=== PATIENT | female | born 1965 | race Caucasian/White ===

== ENCOUNTER → 2023-04-24 15:30 | Outpatient (CLI) | payer OTHER, SELFPAY | PROVIDERS: PCP Family Medicine; Visit Provider Obstetrics & Gynecology | DX: R31.9 Hematuria, unspecified (principal) | CPT/HCPCS: 87086 ==

== ENCOUNTER 2023-08-08 08:09 | Day surgery (SDC) | payer OTHER, SELFPAY ==
[2023-08-01 11:53] VITALS: BMI 35.8
[2023-08-07 15:56] VITALS: BP 111/60; PULSE 61; RESP 16; TEMP 35.7; O2SAT 100
[2023-08-08] VITALS (14 sets, daily range): BP systolic 91–120; BP diastolic 46–70; PULSE 56–70; RESP 16–17; TEMP 35.7–37; O2SAT 94–100; BMI 31.8
[2023-08-08] MEDS: LACTATED RINGERS 1,000 ML 42 ML IV ×2 (08:57→10:57)
[2023-08-08] MEDS: SCOPOLAMINE 1 PATCH TOP (09:24)
[2023-08-08] MEDS: ACETAMINOPHEN IV 1,000 MG/100 ML VIAL 400 MG IV (09:25)
--- NOTE | 2023-08-08 09:46 | PM.PREOP ---
Pre-operative Note COVID-19 COVID-19 status: Not tested Interval Note History & Physical reviewed/Exam performed by Physician: Yes Changes to H&P: No
[2023-08-08] MEDS: CEFAZOLIN 2 GM/100 ML PREMIX 100 ML IV (10:00)
--- NOTE | 2023-08-08 10:37 | SUR.OPER ---
Lithotomy on padded OR bed. [place] Pad Positioner under torso. Head on pillow, arms padded and tucked at sides. Legs secured in padded yellow fins stirrups.
[2023-08-08] MEDS: BUPIVACAINE 0.5% (PF) 30 ML, EPINEPHrine 0.15 MG INJ (10:53)
--- NOTE | 2023-08-08 14:00 | PATH_ITS ---
[facility] Accession Number: [id number] No. of containers..01 Tissue . 01 Material submitted: . uterus - UTERUS,CERVIX,BILATERAL FALLOPIAN TUBES AND OVARIES . 01 Diagnosis: A. UTERUS, CERVIX, FALLOPIAN TUBES AND OVARIES, HYSTERECTOMY, BILATREAL SALPINGO-OOPHORECTOMY: Cervix with parakeratosis, and features suggestive of prolapse-type changes. Myometrium with a small (2 mm) benign leiomyoma. Serosa within normal limits. Scant nonproliferative benign endometrium; endometrial lining with hyalinization and fibrosis. Cross sections of bilateral fallopian tubes with focal benign partubal cyst(s). Cross sections of bilateral ovaries within normal limits. No evidence of dysplasia, endometrial neoplasia, or malignancy. [facility] 08/20/2023 1453 Local . 01 Electronically signed: . Deb Estrada MD, Pathologist NPI- [id number] . 01 Gross description: . Received in formalin with two identifiers and uterus, cervix, fallopian tubes, and ovaries, is a previously opened uterus (52 grams, 6.6 cm from superior to inferior, 5.0 cm from medial to lateral, 2.7 cm from anterior to posterior), with attached cervix (3.2 x 3.0 cm), left fimbriated fallopian tube (6.3 x 0.7 cm), left ovary (4 grams, 2.7 x 2.0 x 1.1 cm), right fallopian tube (6.3 x 0.7 cm), and right ovary (4 grams, 2.5 x 2.0 x 1.3 cm). . The ectocervix is marin and wrinkled with a slit-like os reapproximated to measure 0.4 cm in diameter. The anterior is inked blue and the posterior is inked black. The serosa is marin and wrinkled and unremarkable. The endocervical canal has marin herringbone mucosa and measures 2.1 cm in length. The endometrial cavity is disrupted measuring approximately 1.2 cm from cornu to cornu, and 2.9 cm in length with marin to brown roughened endometrium that averages less than 0.1 cm thick. The myometrium is marin and trabecular with a pale cystic cavity measuring 1.0 cm in greatest dimension, and no additional lesions or nodules identified. The myometrium measures up to 1.1 cm in maximum thickness. . The left tube has violaceous wrinkled serosa with no cysts identified and an unremarkable stellate lumen. The left ovary is marin and cerebriform with an unremarkable cut surface and no lesions identified. . The right fallopian tube has violaceous smooth serosa with multiple cystic structures measuring up to 1.3 cm in greatest dimension filled with cloudy, slightly viscous fluid. The lumen is stellate and unremarkable. The right ovary has a marin, cerebriform external surface with an unremarkable cut surface with no lesions identified. . Major Account Manager sections are submitted as follows: A1: Anterior cervix. A2: Posterior cervix. A3: Anterior full thickness section. A4: Posterior full thickness section. A5: Myometrial cystic area. A6: Left fallopian tube to include one-half of bisected fimbriae and cross-sections. A7: Left ovary. A8: Right fallopian tube to include one-half of bisected fimbriae and cross-sections. A9: Right ovary. ([id number]) . Additional sections to include possible endometrium are submitted in [id number]. ([id number]) /MARISOL 08/16/2023 1825 [facility] . 01 Pathologist provided ICD-10: N81.10, N81.6, N81.4 . 01 CPT . 995440 Specimen Comment: A courtesy copy of this report has been sent to [phone] Performed at: [address] [address], [place], [place] [id number] MD Shaggy Garcia MD Phone: [phone]
--- NOTE | 2023-08-08 14:41 | P.OP_ITS ---
Operative Date/Time/Diagnoses Date of procedure: 08/08/23 Time of procedure: 10:15 Pre-op diagnosis: (1) Uterovaginal prolapse, incomplete (2) POP-Q stage 2 rectocele (3) POP-Q stage 2 cystocele: (4) Mixed urinary incontinence due to female genital prolapse: Post-op diagnosis: other (Same as above; vaginal enterocele) Procedure & Clinicians Procedure: Procedures Operation Date: 08/08/23 09:15 Actual Procedure Side Surgeon p Laparoscopic Total Hysterectomy with bilateral salpingoophorectomy s Laparoscopic uterosacral vault suspension s Laparoscopic enterocele repair Primo Mcnamara MD s Anterior/Posterior Colporrhaphy Primo Mcnamara MD s Mid urethral sling with cystoscopy Primo Mcnamara MD Indications: Gladis is a 50-year-old 3 para 3, LMP in 2011 at the time of an endometrial ablation who presented for evaluation in referral from Dr. Scott Dorsey. The patient experienced menarche at age 16 and has had 3 deliveries, 2 of which were since and her 1st was a vaginal . She went through menopausal symptoms starting about 4 or 5 years ago and her vasomotor symptoms ceased about 2 years ago. Patient has had significant stress urinary incontinence symptoms since having her children but over the last couple of years has also started to notice increasingly significant urge incontinence. She had apparently been tried on 1st and second-line spasmolytic therapy by Urology at [facility] with little benefit yet significant side- effects. Over the last 3 or 4 years, the patient has noticed progressively severe vaginal dryness and is not using either systemic or vaginal estrogen replacement. We had an extended discussion regarding the nature of pelvic organ prolapse as well as implications for the prolapse on continence and other symptoms she has been experiencing. In addition we discussed her atrophic vaginal changes which are probably contributing to some of the bladder irritability she has been experiencing as well. After discussion of all options, the patient wishes to proceed with surgical correction of her pelvic organ prolapse as well as the KIM. Case request submitted for total laparoscopic hysterectomy with bilateral salpingo oophorectomy, uterosacral vault suspension, possible laparoscopic enterocele repair, anterior and posterior colporrhaphy, and placement of mid urethral sling with cystoscopy. In the interim, the patient has initiated vaginal estradiol therapy. She presents today for her scheduled surgery. Surgeon: Primo Mcnamara Account Services Representative: Kalee Zurita Anesthesia Type: General Operative Notes Findings: Stage II rectocele and enterocele complex. Stage II cystocele with marked urethrovesical junction hypermobility. Stage 1-2 uterovaginal prolapse. Enterocele confirmed at the time of laparoscopy. The bladder is unremarkable with vigorous streams of clear urine jetting from each ureteral orifice following completion of hysterectomy and vault suspension. The pelvis was unremarkable except for anterior cul-de-sac scarring from prior . The remainder of the abdomen and pelvis were normal as visualized laparoscopically. Closure Type: primary Specimen(s): left tube & ovary, right tube & ovary and uterus Applied: catheter and other (Vaginal packing) Estimated blood loss (mL): 150 Blood products transfused: none Procedure in detail: With the patient in modified dorsal lithotomy position preparations were made by prepping and draping the patient in usual manner for vaginal surgery and insertion of Lord catheter. A pre-surgical time-out was then taken in accordance with [facility] policy. A bivalve speculum was then placed in the vagina and the cervix visualized. The anterior lip of the cervix was then grasped with a single-tooth tenaculum. The uterus was sounded to 5 cm, the endocervical canal dilated slightly, and a VCare uterine manipulator with a large colpotomy cup was placed. The umbilicus was then infiltrated with 0.5% Marcaine with epinephrine. A 1 cm umbilical incision was made transversely and a Veress needle was used to insufflate the abdominal cavity with carbon dioxide. Once the abdomen was appropriately insufflated, a 5 mm trocar and sleeve were then placed through the umbilical incision. The scope was placed through the trocar and the initial assessment of the intra-abdominal contents carried out. A 2nd and 3rd 5 mm port was then placed 1st in the right mid quadrant from then the left mid quadrant by infiltration of the skin and subcutaneous tissues, a 1 cm transverse incision and insertion of the 5 mm bladeless port. Using a 3 puncture technique, the abdomen and pelvis were inspected laparoscopy and photographically documented. Uterus is mobilized with the VCare manipulator and attention turned to the left adnexa. The distal tube was then grasped and the infundibulopelvic ligament divided after coagulation with the PowerSeal device. The dissection was then carried out toward the cornua, then carried down using the PowerSeal device so as to divide the utero-ovarian ligament and the round ligament with blunt and sharp dissection of the broad down to the level of the uterine artery. The uterine artery was then skeletonized after development of a bladder flap, coagulated, and divided. Once hemostasis was assured on the left side attention was turned to the right and the infundibulopelvic ligament, meso salpinx, round ligament, and broad ligament were dissected in a fashion exactly the same as it had been on the left. The right uterine artery was then visualized after skeletonization and coagulated and divided. The uterus was seen to jen after coagulation of both your arteries and the cup was identified through the vaginal muscularis at its insertion with the body of the cervix. Circumferential excision of the vaginal cup was accomplished without difficulty using monopolar current and the uterus mobilized. The uterus was then removed through the vagina and the vaginal cuff closed [id number] with a series of 0 Vicryl [id number] stitches. Attention was then turned to performance of the mid urethral sling procedure. The mid urethra was identified by palpation of the Lord bulb and a 1.5 cm longitudinal incision was made in the vaginal mucosa underlying the mid-urethra after infiltration of the mucosa with 0.25% Marcaine with epinephrine. The dissection was carried out laterally on both sides with Metzenbaum scissors and the Ethicon TVT needles were introduced 1st on the right side than the left and passed through the suprapubic skin. The Lord catheter was then removed and cystoscopy performed. No abnormalities or injury to the bladder was seen and the TVT was passed up through the suprapubic incisions and appropriately tensioned. The sling was then unsheathed and correct positioning assured prior to closure of the vaginal mucosa with 2-0 Vicryl using a running interlocking stitch. Attention was then turned to performance of the anterior repair. The vaginal mucosa underlying the cystocele was infiltrated with 0.25% Marcaine with epinephrine in the midline and a longitudinal incision of the mucosa was made with a scalpel. The dissection was carried out laterally on both sides and the bladder muscularis along with the pubis cervical fascia was plicated in the midline in 2 layers. The redundant portion of vaginal mucosa was then excised with Metzenbaum scissors and the anterior vaginal incision closed with 2-0 Vicryl in a running interlocking stitch. Attention was then returned to the abdominal cavity and a 4th 5 mm port was placed in the deep right lower quadrant in preparation for laparoscopic uterosacral vault suspension and enterocele repair. Using 2-0 Ethibond suture with an EEA Sizer in the vaginal canal the uterosacral ligament on the left was attached to the vaginal cuff with 2 stitches and that process was repeated on the right side. The uterosacral ligament had been demarcated on both sides with monopolar cautery immediately lateral to the uterosacral ligament and the ureters were seen to be freely peristalsing lateral to the uterosacral ligament suspension. The enterocele was then obliterated using a laparoscopic Halban procedure with 3x 2-0 Ethibond sutures. Pelvis was carefully evaluated and no significant bleeding was noted in the pelvis. A small piece of Gel-Foam was placed over the vaginal cuff and the pne umoperitoneum was vented. The laparoscopic port sleeves were removed and the incisions closed with 4-0 Monocryl using inverted interrupted stitches. Appropriate dressings were then applied and attention returned to completion of the vaginal portion of the case. A Jennifer retractor was used to elevate the anterior vaginal wall and a nacho-shaped incision of the introitus and perineal body was performed after infiltration of those tissues with 0.25% Marcaine with epinephrine. The posterior vaginal wall was then undermined with Metzenbaum scissors and incised in the midline. Sharp and blunt dissection was used to expose the levators on both sides and a two-layer plication of the rectal muscularis, the rectovaginal fascia, and the levators was performed with 0 Vicryl interrupted stitches. The redundant portion of vaginal mucosa was then excised and the posterior vaginal incision closed with 0 Vicryl using a running interlocking stitch. Perineoplasty was then performed with 0 Vicryl deep stitches and 2-0 Vicryl subcuticular closure of the skin overlying the perineum and introitus. Hemostasis was excellent and a moistened vaginal pack was placed in the vagina. The case was then terminated, the patient awakened, and then transferred to PACU after having tolerated the procedure well. Complications: none Post-operative Condition: stable Disposition: PACU Plan for aftercare: Routine postoperative care
[2023-08-08] MEDS: OXYCODONE IR 5 MG TABLET PO (14:55)
[2023-08-08] MEDS: ONDANSETRON 4 MG/2 ML INJ IV (14:55)
[2023-08-08] MEDS: KETOROLAC 30 MG/ML VIAL IV ×2 (14:56→20:53)
[2023-08-08] MEDS: LACTATED RINGERS 1,000 ML 100 ML IV (15:41)
[2023-08-08] MEDS: ACETAMINOPHEN 325 MG TABLET 650 MG PO (18:06)
[2023-08-08] MEDS: DOCUSATE 100 MG CAPSULE 200 MG PO (20:53)
[2023-08-09] VITALS: BP 136/84; PULSE 70; RESP 17; TEMP 36.4; O2SAT 96
[2023-08-09] MEDS: KETOROLAC 30 MG/ML VIAL IV (01:41)
[2023-08-09] MEDS: ACETAMINOPHEN 325 MG TABLET 650 MG PO ×2 (01:42→05:46)
[2023-08-09] MEDS: LACTATED RINGERS 1,000 ML 100 ML IV (01:43)
[2023-08-09 06:42] LABS: Add Manual Diff / Slide Review NO; Basophils Absolute Auto 0 /uL (0-100); Basophils Percent Auto 0.1 % (0-2); Eosinophils Absolute Auto 0 /uL (0-450); Hematocrit 34.6 % (36-46); Lymphocytes Absolute Auto 2000 /uL (1100-4500); Mean Corpuscular HGB Conc 34.6 % (30-36); Mean Corpuscular Hemoglobin 30.1 PG (26-34); Mean Corpuscular Volume 86.8 fL (80-100); Monocytes Absolute Auto 700 /uL (0-900); Monocytes Percent Auto 4.2 % (3-14); Neutrophils Absolute Auto 12900 /uL (1500-7000); Neutrophils Percent Auto 82.7 % (50-75); Platelet Count 296 X10^3/uL (150-400); Red Blood Cell Count 3.98 X10^6/uL (4.0-5.2); Red Cell Distribution Width 13.3 % (11.6-14.8); White Blood Cell Count 15.6 X10^3/uL (4.5-11.0)
[2023-08-09 08:00] VITALS: BP 87/44; PULSE 52; RESP 16; TEMP 36.2; O2SAT 95
[2023-08-09] MEDS: DOCUSATE 100 MG CAPSULE 200 MG PO (09:33)
[2023-08-09] MEDS: RIVAROXABAN 10 MG TABLET 20 MG PO (09:33)
--- NOTE | 2023-08-09 10:05 | PM.DS.1 ---
History of Present Illness History of Present Illness Date Patient Seen: 08/09/23 Time Patient Seen: 10:05 Chief complaint: Pelvic organ prolapse, stress urinary incontinence Narrative: Gladis is a 50-year-old 3 para 3, LMP in 2011 at the time of an endometrial ablation who presented for evaluation in referral from Dr. Scott Dorsey. The patient experienced menarche at age 16 and has had 3 deliveries, 2 of which were since and her 1st was a vaginal . She went through menopausal symptoms starting about 4 or 5 years ago and her vasomotor symptoms ceased about 2 years ago. Patient has had significant stress urinary incontinence symptoms since having her children but over the last couple of years has also started to notice increasingly significant urge incontinence. She had apparently been tried on 1st and second-line spasmolytic therapy by Urology at [facility] with little benefit yet significant side-effects. Over the last 3 or 4 years, the patient has noticed progressively severe vaginal dryness and is not using either systemic or vaginal estrogen replacement. We had an extended discussion regarding the nature of pelvic organ prolapse as well as implications for the prolapse on continence and other symptoms she has been experiencing. In addition we discussed her atrophic vaginal changes which are probably contributing to some of the bladder irritability she has been experiencing as well. After discussion of all options, the patient wishes to proceed with surgical correction of her pelvic organ prolapse as well as the KIM. Case request submitted for total laparoscopic hysterectomy with bilateral salpingo oophorectomy, uterosacral vault suspension, possible laparoscopic enterocele repair, anterior and posterior colporrhaphy, and placement of mid urethral sling with cystoscopy. In the interim, the patient has initiated vaginal estradiol therapy. She presents today for her scheduled surgery. Discharge Providers Provider Date of admission: 08/08/2023 Discharge Date: 08/09/23 Primary care physician: Scott Dorsey DO Discharge provider: Primo Mcnamara MD Summary Hospital Course Discharge Diagnosis: Uterovaginal prolapse, incomplete Stage II cystocele Stage II enterocele/rectocele complex Stress urinary incontinence Status post total laparoscopic hysterectomy with bilateral salpingo oophorectomy, laparoscopic uterosacral ligament vault suspension, laparoscopic enterocele repair, anterior and posterior colporrhaphy, mid urethral sling placement with cystoscopy Hospital Course: The patient was admitted on the morning of 08/08/2023 and underwent an uneventful total laparoscopic hysterectomy with bilateral salpingo oophorectomy, laparoscopic uterosacral ligament vault suspension, laparoscopic enterocele repair, anterior and posterior colporrhaphy, and mid urethral sling placement with cystoscopy. Details of the procedure well summarized on my operative note of that date. Following her surgery the patient has done extremely well with prompt return of bowel and bladder function, she is ambulating independently, tolerating regular diet, and her pain is well controlled with oral pain medications. Her Xarelto will be re-initiated 1st morning after surgery and bladder scan reveals effective emptying of the bladder following removal of her catheter. She will be discharged at this time to home in an afebrile normotensive condition after counseling regarding precautionary symptoms, limitations of activity, medications, and plans for follow-up which will be in 2 weeks. Medications at discharge will include resumption of all preadmission medications as well as oxycodone 5 mg p.o. every 4 hours as needed for pain, dispense 20 with no refills. In addition she will be prescribed Cipro 500 mg p.o. b.i.d. x5 days for UTI prophylaxis following catheterization. Status at Discharge Cognitive/behavioral status at discharge: oriented Functional status at discharge: independent ambulation Overall status at discharge: patient is progressing back to baseline Time Spent with Patient Time spent: Less than 30 minutes Exam Vital Signs (past 8 hours): - 08/09/23 08:00 Temperature 97.1 F L Pulse Rate 52 L Respiratory Rate 16 Blood Pressure 87/44 L Pulse Oximetry 95 Oxygen Delivery Method Room Air Oxygen Flow Rate 0 Const General: cooperative and comfortable Nutritional Appearance: average body habitus Orientation: alert and oriented x3 HENMT Head: normal to inspection, atraumatic and abrasion Ears: hearing grossly normal bilaterally Face and sinus: face symmetric Eyes General: appearance normal, both eyes and all related structures Conjunctivae: conjunctivae normal Sclera: sclerae normal EOM: EOM intact bilaterally Neck Neck: normal visual inspection Resp Effort & Inspection: normal respiratory effort and able to speak in complete sentences Auscultation: clear to auscultation bilaterally Cardio Rate: regular rate Rhythm: regular rhythm Heart Sounds: S1 normal, S2 normal and no murmurs GI Inspection: normal to inspection and incision (Surgical dressings clean and dry) Palpation: soft, no hepatosplenomegaly and tender (Mild, diffuse postsurgical tenderness) External Female Exam: other (No significant bleeding noted) Extrem General: no calf tenderness Psych Appearance: grossly normal Mental Status: mental status grossly normal Speech and Movement: speech and movement normal Mood: congruent mood Affect: normal affect Attitude: cooperative Thought Process: normal Thought Content: normal Judgment: judgment good Objective Labs 08/09/23 05:46 Labs: Laboratory Results - last 24 hr 08/09/23 05:46 WBC 15.6 H RBC 3.98 L Hgb 12.0 Hct 34.6 L MCV 86.8 MCH 30.1 MCHC 34.6 RDW 13.3 Plt Count 296 Neut % (Auto) 82.7 H Lymph % (Auto) 13.0 L Vernon % (Auto) 4.2 Eos % (Auto) 0.0 L Baso % (Auto) 0.1 Neut # (Auto) 58557 H Lymph # (Auto) 2000 Vernon # (Auto) 700 Eos # (Auto) 0 Baso # (Auto) 0 PFSH Medical History (Updated 08/01/23 @ 14:44 by Apple Morrow RN) Factor 5 Leiden mutation, heterozygous History of CVA (cerebrovascular accident) History of cardioversion (08/30/19) History of COVID-19 (04/25/21) Sleep apnea (~2019) Abnormal Pap smear of cervix (~1988) History of urinary incontinence (~2009) Atrial fibrillation (~2019) Surgical History (Updated 08/01/23 @ 14:44 by Appel Morrow RN) History of cardiac radiofrequency ablation (03/2022) Anesthesia H/O wrist surgery (~2020) History of section History of bilateral breast reduction surgery (~1996) History of appendectomy (~1987) S/P patent foramen ovale closure (~2004) History of endometrial ablation Family History (Updated 05/10/23 @ 20:32 by Riana Kaur) Father Diabetes mellitus Mother Mental health problem Brother Diabetes mellitus Sister Fibromyalgia Grandfather Cancer Grandmother Cancer Social History household members: spouse Smoking Status: Never smoker alcohol intake: current Discharge Assessment & Plan Assessment and Plan Assessment: Uterovaginal prolapse, incomplete Stage II cystocele Stage II enterocele/rectocele complex Stress urinary incontinence Status post total laparoscopic hysterectomy with bilateral salpingo oophorectomy, laparoscopic uterosacral ligament vault suspension, laparoscopic enterocele repair, anterior and posterior colporrhaphy, mid urethral sling placement with cystoscopy Plan of Treatment: Routine postoperative care with follow-up planned for 2 weeks after her surgery or as needed Discharge Plan Discharge Plan Patient Disposition: Home Provider Discharge Comment: Please review the written instructions you received when you were discharged from the hospital. Your follow-up appointment is scheduled for 2 weeks after your surgery and I look forward to seeing you then. If however in the meanwhile you have any issues, concerns, or questions, please contact me either through the office phone at [phone], or via the patient portal. Discharge orders & Medications Discharge Orders: Discharge (Order); Ordered 08/09/23 Ordered By: Primo Mcnamara Prescriptions: New oxycodone 5 mg Tablet 5 mg PO Q4HR PRN (Reason: Pain, Moderate (4-6)) Qty: 20 0RF ciprofloxacin HCl [Cipro] 500 mg tablet 500 mg PO BID 5 Days Qty: 10 0RF Continued metoprolol succinate 25 mg tablet extended release 24 hr 12.5 mg PO DAILY estradiol 0.01 % (0.1 mg/gram) cream 1 g vaginal 3XW Qty: 42.5 12RF Rx Instructions: Apply 1 g PV hs x7 days, then PV hs 3 nights weekly aspirin 81 mg Tablet,Delayed Release (Dr/Ec) 81 mg PO BEDTIME Patient Comments: taking while off xarelto Xarelto 20 mg tablet 20 mg PO DAILY Follow up/Referrals: Scott Dorsey DO [Primary Care Provider] - Primo Mcnamara MD [Physician] - Diet/Activity/Treatments Diet: Diet as Tolerated Activity: As tolerated Other treatments: Ojku-tew-nbmcsjy Tylenol and/or ibuprofen may be used for additional pain relief. Agga-ozs-sovjcvi stool softeners and/or MiraLax may be used as needed for constipation. Skin/Wound/Dressing Care Report to your healthcare provider any signs of infection, such as:: chills, fever, increased pain, unusual drainage and unusual redness Dressing: Dressings should be removed on the morning of 08/10/2023 Visit Report/Discharge Packet Instructions: DI for Hysterectomy, DI for Laparoscopy Stand Alone Forms: Surgery Discharge Print Language: Greenlandic Discharge Data Primary Care Provider: Scott Dorsey Attending Provider: Primo Mcnamaar
--- NOTE | 2023-08-09 10:43 | CM.DANOTE ---
Initial DCP Assessment Visit Note Reviewed EMR and team rounds for status updates. Met with pt/spouse at bedside to introduce self and role, pt was found to be resting, expressing having some discomfort, however is anxious to d/c home later today after she is able to void. Pt lives independently with spouse on [facility]. Spouse will transport her home once she's cleared for discharge. Payor: DILIP Attending: Dr. Mcnamara Pt is a 58 year-old F post-op day 1 following a total laparoscopic hysterectomy with bilateral salpingo oophorectomy. She has a lengthy hx of urinary urgency, and more recently had a prolapsed uterus. No identified needs for home d/c at this time. DCP will continue to follow for any further evolving needs during her stay. Discharge Planning/Care Management CM Discharge Assessment Start: 08/09/23 10:39 Freq: Status: Active Protocol: Document 08/09/23 10:39 DPL (Rec: 08/09/23 10:43 DPL [id number]) Discharge Planning Assessment Assigned Appeals Analyst LISBETH Melendez Advance Directives? No History Provided By Patient,Significant Other Expected Length of Stay 1 Has Patient been admitted in last 30 No days? Prior Living Arrangements House Household Members spouse Type of transporation used prior to Drives own vehicle admit Independent with ADL's Yes Is patient alert and oriented? Yes Comment N/A Caregiver for Another No Comment N/A Comment N/A Comment No identified home d/c needs at this time. Barriers to Discharge No Discharge Plan Home Referrals Initiated None needed Whiteboard Updated in Patient Room with Yes name and ext. # of Appeals Analyst Review Status In Process Please Provide Date Initial DC 08/09/23 Assessment Was Performed Pre-Anesthesia Assessment Start: 08/01/23 11:53 Freq: Status: Active Protocol: Document 08/01/23 11:53 CAB (Rec: 08/01/23 12:04 CAB [id number]) Pre-Anesthesia Assessment Patient Information Reviewed Via Chart Review Primary Care Provider Scott Dorsey Seen Specialist in Last 12 Months Yes Specialist Seen Slusher Operator,Retarder Operator Primary Language Telugu Maintenance Director Required No Height 167.64 cm Weight 100.698 kg Body Mass Index (BMI) 35.8 Barriers to Learning None Anesthesia Review Requested No Housekeeping Associate No Patient is completely paralyzed or No completely immobile Mental Status Oriented to own ability Hx Sleep Apnea No Currently Taking a Beta Janice Yes: Metoprolol Anti-Coagulant Therapy Yes: Xarelto-hold 2 days prior , bridge w/ASA 81mg per Cardiology Has a Slusher Operator Yes: Visit 12/19/[address] Aravind Fisher Pacemaker/ICD No Pacemaker Rep Required? No Cardiac Clearance Received Yes Comment Cardiac records scanned and in surgery folder Bladder Pattern Incontinent, Stress Urinary Catheter Present No Hx Urinary Self Catheterization No Diabetes No Patient No Lactating No Marital Status Lives With spouse Patient Discharge Plan Description Return Home Comment Lives on [facility]
--- NOTE | 2023-08-09 15:24 | PC.NURSE ---
Pt doing well post op Denies discomfort. Orders for D/C received. Home instructions given w/ understanding Pt escorted by staff via W/C to waiting vehicle D/C in stable post op status.
== END 2023-08-09 14:53 | disposition home or self-care (01) ==
LOC: OR 08:09 → AC 08:10
PROVIDERS: PCP Family Medicine; Referring Provider Obstetrics & Gynecology; Visit Provider Obstetrics & Gynecology
PROC: 0UT94ZZ Resection of Uterus, Percutaneous Endoscopic Approach (ICD-10-PCS; principal; 2023-08-08 09:15)
PROC: 0TSD0ZZ Reposition Urethra, Open Approach (ICD-10-PCS; 2023-08-08 09:15)
DX: N81.2 Incomplete uterovaginal prolapse (principal); N39.3 Stress incontinence (female) (male); N83.8 Other noninflammatory disorders of ovary, fallopian tube and broad ligament; N88.8 Other specified noninflammatory disorders of cervix uteri
CPT/HCPCS: 57425; 58571; 51992; 57265; 36415; 57288; 85025; C1771; J0136; J0171; J0330; J0690; J1100; J1170; J1885; J2405; J2704; J3010; J3490

== ENCOUNTER → 2023-08-22 13:50 | Outpatient (CLI) | payer OTHER, SELFPAY ==
[2023-08-08 15:21] VITALS: BMI 31.8
[2023-08-22 21:25] LABS: Appearance Urine UA CLEAR; Bilirubin Urine UA NEGATIVE (NEGATIVE); Color Urine UA YELLOW; Glucose Urine UA NEGATIVE (Negative); Ketones Urine UA NEGATIVE (NEGATIVE); Leukocyte Esterase Urine UA 1+ (NEGATIVE); Nitrite Urine UA NEGATIVE (Negative); Occult Blood Urine UA TRACE-INTACT (Negative); Protein Urine UA NEGATIVE (Negative); Urobilinogen Urine UA 0.2 E.U./dL (0.2)
[2023-08-22 21:32] LABS: Bacteria Urine Occasional (0-1); Culture Indicated Urine Specimen Cultured; RBC Urine 0-1/HPF (0-5/HPF); Squamous Epithelial Cell Urine 1-5 /HPF (0-5/HPF); Urine Volume 10mL (spun); WBC Urine 1-5/HPF (0-5/HPF)
== END ==
PROVIDERS: PCP Family Medicine; Visit Provider Obstetrics & Gynecology
DX: N39.3 Stress incontinence (female) (male) (principal); R35.0 Frequency of micturition
CPT/HCPCS: 81001; 87086

== ENCOUNTER → 2023-08-30 10:36 | Outpatient (CLI) | payer OTHER, SELFPAY ==
[2023-08-08 15:21] VITALS: BMI 31.8
[2023-08-30 18:41] LABS: Appearance Urine UA CLEAR; Bilirubin Urine UA NEGATIVE (NEGATIVE); Color Urine UA YELLOW; Glucose Urine UA NEGATIVE (Negative); Ketones Urine UA NEGATIVE (NEGATIVE); Leukocyte Esterase Urine UA TRACE (NEGATIVE); Nitrite Urine UA NEGATIVE (Negative); Occult Blood Urine UA 1+ (Negative); Protein Urine UA NEGATIVE (Negative); Specific Gravity Urine UA 1.015 (1.000-1.035); Urobilinogen Urine UA 0.2 E.U./dL (0.2)
[2023-08-30 19:00] LABS: Bacteria Urine Occasional (0-1); Culture Indicated Urine Specimen Cultured; Mucus Urine 1+ (Negative); RBC Urine 1-5/HPF (0-5/HPF); Squamous Epithelial Cell Urine 1-5 /HPF (0-5/HPF); Urine Volume 10mL (spun); WBC Urine 0-1/HPF (0-5/HPF)
== END ==
PROVIDERS: PCP Family Medicine; Referring Provider Obstetrics & Gynecology; Visit Provider Obstetrics & Gynecology
DX: R30.0 Dysuria (principal)
CPT/HCPCS: 81001; 87086

== ENCOUNTER 2024-04-16 14:30 | Outpatient (RCR) | payer OTHER, SELFPAY ==
[2023-08-08 15:21] VITALS: BMI 31.8
--- NOTE | 2024-01-13 16:04 | PT.OIE ---
Current Diagnoses Urge incontinence (01/13/24) Mixed incontinence (01/13/24) Superficial (introital) dyspareunia (01/13/24) Past Medical History (Last Updated 08/01/23 @ 14:44 by Apple Morrow RN) Abnormal Pap smear of cervix (~1988) Atrial fibrillation (~2019) Factor 5 Leiden mutation, heterozygous History of cardioversion (08/30/19) History of COVID-19 (04/25/21) History of CVA (cerebrovascular accident) History of urinary incontinence (~2009) Sleep apnea (~2019) Past Surgical History (Last Updated 09/24/23 @ 13:01 by Primo Mcnamara MD) Anesthesia H/O wrist surgery (~2020) History of appendectomy (~1987) History of bilateral breast reduction surgery (~1996) History of cardiac radiofrequency ablation (03/2022) History of section History of endometrial ablation History of hysterectomy for benign disease S/P patent foramen ovale closure (~2004) Visit Care Team Role Provider Type Scott Dorsey DO Family Provider Non-Staff Primary Care Provider Specialty: Family Practice Address: [address] [place] [address], [id number] Email: Primo Mcnamara MD Attending Provider Physician Referring Provider Specialty: SOCIAL SERVICE COORDINATOR Address: [address] [place] [address], [address], [address] Email: [email or web address] Physical Therapy Initial Evaluation PT-OP-A Visit Information Start: 12/31/23 18:50 Freq: Status: Active Protocol: Document 01/13/24 08:20 LRN (Rec: 01/13/24 09:04 LRN [id number]) Out-Patient Physical Therapy Visit Information Visit Information Visit Type Initial Evaluation Visit Start Time 08:20 Visit Stop Time 09:03 Visit Number 1 Evaluation Information Evaluation Date 01/13/24 Precautions Precautions Allergies, Back pain, hyste, breast reduction (1996), PFO, 2 C-sections, bladder and rectal prolapse repair 08/15, Factor 5 Leiden mutation. Records indicate hx of CVA, cardioversion 08/30/19, A. fib 2019, S/P patent foramen ovale closure (~2004), and History of endometrial ablation. PT-OP-B Current Condition Start: 12/31/23 18:50 Freq: Status: Active Protocol: Document 01/13/24 08:20 LRN (Rec: 01/13/24 09:04 LRN [id number]) Current Condition History of Current Condition Onset Date 15 yrs ag Current Complaints Worsened urinary incontinence all the time, urinating several times/night. History of Current Condition Pt states she was told she had a prolpase a couple yrs ago. She states in July 2023 she had a hyste and surgical repair of cystocele and rectocele at same time and was given a bladder sling and was given medication for urgency by Dr. Mcnamara. Was told since she has gained a couple of pounds, that she needs to lean backwards to get full emptying of bladder. States she feels her PF strength is more (as her spouse attests) but she complains of not being able to stop urine flow when heading to the bathroom. She has had bladder infections a couple times a yr until she started taking D-manouse. She is currently taking medication for a bladder infection (still on medication ). She c/o pain with intercourse with initial insertion. Pt is G3, P3; she reports 2 c-sections, 3rd child vaginal (note: records indicated 1st was vaginal). Prior Treatments and Tests Physical Therapy in [place] before surgery, and went to bladder doctor and was given medication for it and because of secondary side effects of dementia, she stopped. Records indicate: She had apparently been tried on 1st and second-line spasmolytic therapy by Urology at [facility] with little benefit yet significant side-effects. She is 08/08/23, status post TLH with BSO, laparoscopic vault suspension, laparoscopic enterocele repair, A&P repair, and mid urethral sling placement with cystoscopy. f/u visit on 09/24/23, pt showed lack of a normal stream following her mid urethral sling placement. Treatment Goals Patient/Caregiver Goals PT goals: - prior level of function: 10x /day but able to keep from leaking while going to the bathroom. - Strengthen PF to prevent urinary leakage to be able to stop the flow of urine with an urge. - Decrease pain with intial insertion with intercourse. - HEP. Personal Factors Other Personal Factors That May Effect Surgical repair (08/08/23) of Therapy/Recovery cystocele and rectocele at same time and was given a mid urethral bladder sling, 2 C-sections, Factor 5 Leiden mutation. Records indicate hx of CVA, hx of A. fib (2019), S/P patent foramen ovale closure (~2004), and history of endometrial ablation. PT-OP-C Subjective Start: 12/31/23 18:50 Freq: Status: Active Protocol: Document 01/13/24 08:20 LRN (Rec: 01/13/24 09:04 LRN [id number]) Patient Questionnaires Pelvic Pain and Urgency/Frequency Patient Symptom Scale Pelvic Pain Score 12 PT-OP-I Pelvic Floor Start: 12/31/23 18:50 Freq: Status: Active Protocol: Document 01/13/24 08:20 LRN (Rec: 01/13/24 09:04 LRN [id number]) Pelvic Floor Assessment Urine Pelvic Floor Surgery Yes Leakage Size Medium Leakage Cause Cough,Lifting,Sneeze,Urge Leaks Per Day 10 Voiding Frequency 10 Nocturia 3-4 Pads Used In 24 Hours 5 Urine Pad Type Maxi Pad Pelvic Clock Pelvic Clock 12-3 Tightness Pelvic Clock 3-6 Tightness Pelvic Clock Other Tenderness at Pelvic Clock 1-2 and 6. Prolapse Cystocele Grade 3 Prolapse Comments Bladder visual at 1/2 of vaginal canal but has not extended to the vaginal opening in supine. Perineal Descent Resting Absent Contraction Ability Voluntary Contraction Weak Voluntary Relaxation Weak Manual Muscle Testing Left 2 Manual Muscle Testing Right 1 Manual Muscle Testing Anterior 1 Manual Muscle Testing Posterior 2 Number of Quick Contractions In 10 5 Seconds Comments Pelvic Floor Comments PF endurance not well palpable ; therefore the length of hold is questionable, possibly holding up to 5 secs with use of gluteal and abdominal muscles to assist with contraction. PF quick contractions are sluggish. R labia minora is tender at lower right region. Redness is present in bilateral labia minora. PT-OP-J Posture/Palpation/Skin Start: 12/31/23 18:50 Freq: Status: Active Protocol: Document 01/13/24 08:20 LRN (Rec: 01/13/24 09:04 LRN [id number]) Posture Evaluation Position Standing Head/C-Spine Posture Forward Head L-Spine Posture Shifted Left Pelvis Posture Anteriorly Tilted Weight Distribution Weight Shifted Left Hip Posture (R) Externally Rotated,(R) Abducted Comments Posture Comments L ear is low, Dowagers hump, straightened upper thoracic spine. PT-OP-K Range of Motion Start: 12/31/23 18:50 Freq: Status: Active Protocol: Document 01/13/24 08:20 LRN (Rec: 01/13/24 09:04 LRN [id number]) Lumbar Spine Range of Motion Lumbar Spine Active Degrees Testing Position Standing Flexion 70 Extension 10 Rotation Left 30 Rotation Right 35 Lateral Flexion Left 20 Lateral Flexion Right 15 Hip Goniometric Range of Motion Hip Right Passive Testing Position Supine Internal Rotation 35 External Rotation 65 Left Passive Testing Position Supine Internal Rotation 30 External Rotation 60 PT-OP-M Strength Start: 12/31/23 18:50 Freq: Status: Active Protocol: Document 01/13/24 08:20 LRN (Rec: 01/13/24 09:04 LRN [id number]) Hip Strength Hip Manual Muscle Testing Right External Rotation 4+ Good+ Comments Strength is 5/5 except as indicated above. Left Comments Strength is 5/5 except as indicated above. PT-OP-Q Treatments Start: 12/31/23 18:50 Freq: Status: Active Protocol: Document 01/13/24 08:20 LRN (Rec: 01/13/24 11:25 LRN [id number]) Self-Care/Home Management Treatment Education Other Education Discussed results of evaluation, goals, treatment, and plan of care (POC) with pt , discussed attendance/cx/dns policy; pt agreeable to evaluation, goals, treatment, attendance/cx/dns policy and POC. Discussed and educated pt in specifics for completion of in use of Bladder Diary and I/S in tracking for 1 week. Activities Self-Care/Home Management Activities Issued & reviewed HEP: Basiliogel ex's and discussed exercise of Quick Flicks, Long Holds and Aggravators. PT-OP-T Assessment and Plan Start: 12/31/23 18:50 Freq: Status: Active Protocol: Document 01/13/24 08:20 LRN (Rec: 01/13/24 09:04 LRN [id number]) Physical Therapy Assessment Rehab Potential Rehabilitation Potential Good Evaluation Complexity Number of Personal Factors/Comorbidities 3 or More Number of Body Systems Impaired 4 or More Clinical Presentation at Evaluation Evolving Impairments Impairments Activity Tolerance, Coordination,Pain,Posture,ROM, Soft Tissue Mobility,Strength, Transfers Other Impairments Mixed urinary leakage, dysparenia poor coordination of PF contraction with breath/ transfers. Goals Four Impairment Pain with intercourse on insertion Short Term Goal (STG) Pt will be educated in genital /vulvar care, and will seek medication to improve tissue health of her labia minora. STG Duration 02/28/24 [place] Goal (LTG) Eliminate pain with intercourse on initial insertion. LTG Duration 04/10/24 Three Impairment Urge urinary incontinence while heading to bathroom Short Term Goal (STG) Pt will be educated urge deference technique, bowel care, and BM massage to be able to prevent urinary leakage with a strong urge while at home. STG Duration 02/28/24 [place] Goal (LTG) Strengthen PF to prevent urinary leakage with a strong urge when in public. LTG Duration 04/10/24 Two Impairment Increased frequency of urination (10x/day) Short Term Goal (STG) Pt will be educated in norms for voiding (fluid intake, frequency and urination time) and in bladder retraining to reduce times urinating during the day to no more than 6-7x/ day and 1x at night. STG Duration 02/28/24 [facility] Goal (LTG) Return pt to at least her prior level of function: voiding 10x/day without urinary leakage. LTG Duration 04/10/24 One Impairment Pt lacks an independent self care HEP. Short Term Goal (STG) Pt will be educated and able to demonstrate transfers to coordinate breath/PF contraction with transfer to lessen core abdominal pressure . STG Duration 02/28/24 [place] Goal (LTG) Pt will be independent in a self care HEP for PF strengthening. LTG Duration 04/10/24 Assessment Summary Assessment Pt is a 58 yo female who presents with mixed urinary incontinence and drop of her bladder into her vaginal canal , but not extending past her vaginal canal (grade 3), when in supine at rest. She is able to get a lift of her bladder with a pelvic floor contraction. She has tightness of PF on the L lateral wall (PF cloc, 1-2 & 6 O'Clock), very weak contractions, and sluggish quick contractions. Her left lower outer labia is tender, and is probably the source of her pain with intercourse, as well as redness of her labia minora bilaterally; therefore recommend external estrogen creme to improve tissue health as well as pt eduction in vulvar/genital care. She is quite limited in her trunk mobility and is mildly decreased in her hip mobility. The pt moves with poor core pressure mgmt and her body mechanics with transfers create more core pressure management. She is not having daily bowel movements, which also contribute to her poor core pressure management. The pt will benefit from skilled physical therapy for interventions identified below , in order to work towards achieving the above stated goals. Physical Therapy Plan Frequency and Duration Frequency of Treatment 1x/Week Duration of treatment (weeks) 12 Plan of Care Start Date 01/13/24 Plan of Care End Date 04/10/24 Therapeutic Interventions Therapeutic Interventions Home Exercise Program,Manual Therapy,Neuromuscular Re- education,Self-Care/Home Management,Soft Tissue Mobilization,Therapeutic Activities,Therapeutic Exercises Modalities Biofeedback Other Referrals/Consults Referrals/Consults Recommended Recommend if appropriate topical vaginal cream to improve tissue health of labia minora. Next Visit Focus/Plan Next Note Type Treatment Note Next Visit Plan Next: Review Bladder dairy and discussed fluid intake (AM /PM), bowel movement frequency , & nighttime voiding frequency. Pt education and training in proper Kegel without use of substitute muscles. Pt education proper vulvar and perineal care with handout. Discuss vaginal entry and possible reasons for pain and make recommendation to address with referring physician. Discuss & educate pt in proper transfers, moving in bed, and squatting and lifting using breathwork and PF contraction for coordination of mvmt with breath & Kegel. Manual: improve abdominal soft tissue (bladder) mobility . Pt education and discussion in Urinary urge technique with handout. Pt education and discussion of frequency of BM's, bowel massage, bowel care, and how to have bowel movements without holding breath and discuss squatty potty. EX: PF/hip mobility & strengthening, improve core/ pelvic stability after pt is able to manage her core pressure. General POC: Pt education, self care management, manual therapy (abdominal STM and scar mob), biofeedback with vaginal sensor, therapeutic exercises, therapeutic activities, and neuromuscular reeducation.
--- NOTE | 2024-01-20 14:32 | PT.OTN ---
Current Diagnoses Urge incontinence (01/20/24) Mixed incontinence (01/20/24) Superficial (introital) dyspareunia (01/20/24) Physical Therapy Treatment Note PT-OP-A Visit Information Start: 12/31/23 18:50 Freq: Status: Active Protocol: Document 01/20/24 13:05 LRN (Rec: 01/20/24 14:29 LRN [id number]) Out-Patient Physical Therapy Visit Information Visit Information Visit Type Treatment Note Visit Start Time 13:05 Visit Stop Time 13:52 Visit Number 2 Evaluation Information Evaluation Date 01/13/24 Precautions Precautions Allergies, Back pain, hyste, breast reduction (1996), PFO, 2 C-sections, bladder and rectal prolapse repair 08/15, Factor 5 Leiden mutation. Records indicate hx of CVA, cardioversion 08/30/19, A. fib 2019, S/P patent foramen ovale closure (~2004), and History of endometrial ablation. PT-OP-B Current Condition Start: 12/31/23 18:50 Freq: Status: Active Protocol: Document 01/13/24 08:20 LRN (Rec: 01/13/24 09:04 LRN [id number]) Current Condition History of Current Condition Onset Date 15 yrs ag Current Complaints Worsened urinary incontinence all the time, urinating several times/night. History of Current Condition Pt states she was told she had a prolpase a couple yrs ago. She states in July 2023 she had a hyste and surgical repair of cystocele and rectocele at same time and was given a bladder sling and was given medication for urgency by Dr. Mcnamara. Was told since she has gained a couple of pounds, that she needs to lean backwards to get full emptying of bladder. States she feels her PF strength is more (as her spouse attests) but she complains of not being able to stop urine flow when heading to the bathroom. She has had bladder infections a couple times a yr until she started taking D-manouse. She is currently taking medication for a bladder infection (still on medication ). She c/o pain with intercourse with initial insertion. Pt is G3, P3; she reports 2 c-sections, 3rd child vaginal (note: records indicated 1st was vaginal). Prior Treatments and Tests Physical Therapy in [place] before surgery, and went to bladder doctor and was given medication for it and because of secondary side effects of dementia, she stopped. Records indicate: She had apparently been tried on 1st and second-line spasmolytic therapy by Urology at [facility] with little benefit yet significant side-effects. She is 08/08/23, status post TLH with BSO, laparoscopic vault suspension, laparoscopic enterocele repair, A&P repair, and mid urethral sling placement with cystoscopy. MD f/u visit on 09/24/23, pt showed lack of a normal stream following her mid urethral sling placement. Treatment Goals Patient/Caregiver Goals PT goals: - prior level of function: 10x /day but able to keep from leaking while going to the bathroom. - Strengthen PF to prevent urinary leakage to be able to stop the flow of urine with an urge. - Decrease pain with intial insertion with intercourse. - HEP. Personal Factors Other Personal Factors That May Effect Surgical repair (08/08/23) of Therapy/Recovery cystocele and rectocele at same time and was given a mid urethral bladder sling, 2 C-sections, Factor 5 Leiden mutation. Records indicate hx of CVA, hx of A. fib (2019), S/P patent foramen ovale closure (~2004), and history of endometrial ablation. PT-OP-C Subjective Start: 12/31/23 18:50 Freq: Status: Active Protocol: Document 01/20/24 13:05 LRN (Rec: 01/20/24 14:29 LRN [id number]) OP-PT Subjective Patient Comments Patient Comments Was on trip and did pre- emptive urinating to not be caught unaware. Urination times is dribbling out as she shifts around. States she is having daily BMs. PT-OP-I Pelvic Floor Start: 12/31/23 18:50 Freq: Status: Active Protocol: Document 01/13/24 08:20 LRN (Rec: 01/13/24 09:04 LRN [id number]) Pelvic Floor Assessment Urine Pelvic Floor Surgery Yes Leakage Size Medium Leakage Cause Cough,Lifting,Sneeze,Urge Leaks Per Day 10 Voiding Frequency 10 Nocturia 3-4 Pads Used In 24 Hours 5 Urine Pad Type Maxi Pad Pelvic Clock Pelvic Clock 12-3 Tightness Pelvic Clock 3-6 Tightness Pelvic Clock Other Tenderness at Pelvic Clock 1-2 and 6. Prolapse Cystocele Grade 3 Prolapse Comments Bladder visual at 1/2 of vaginal canal but has not extended to the vaginal opening in supine. Perineal Descent Resting Absent Contraction Ability Voluntary Contraction Weak Voluntary Relaxation Weak Manual Muscle Testing Left 2 Manual Muscle Testing Right 1 Manual Muscle Testing Anterior 1 Manual Muscle Testing Posterior 2 Number of Quick Contractions In 10 5 Seconds Comments Pelvic Floor Comments PF endurance not well palpable ; therefore the length of hold is questionable, possibly holding up to 5 secs with use of gluteal and abdominal muscles to assist with contraction. PF quick contractions are sluggish. R labia minora is tender at lower right region. Redness is present in bilateral labia minora. PT-OP-J Posture/Palpation/Skin Start: 12/31/23 18:50 Freq: Status: Active Protocol: Document 01/13/24 08:20 LRN (Rec: 01/13/24 09:04 LRN [id number]) Posture Evaluation Position Standing Head/C-Spine Posture Forward Head L-Spine Posture Shifted Left Pelvis Posture Anteriorly Tilted Weight Distribution Weight Shifted Left Hip Posture (R) Externally Rotated,(R) Abducted Comments Posture Comments L ear is low, Dowagers hump, straightened upper thoracic spine. PT-OP-K Range of Motion Start: 12/31/23 18:50 Freq: Status: Active Protocol: Document 01/13/24 08:20 LRN (Rec: 01/13/24 09:04 LRN [id number]) Lumbar Spine Range of Motion Lumbar Spine Active Degrees Testing Position Standing Flexion 70 Extension 10 Rotation Left 30 Rotation Right 35 Lateral Flexion Left 20 Lateral Flexion Right 15 Hip Goniometric Range of Motion Hip Right Passive Testing Position Supine Internal Rotation 35 External Rotation 65 Left Passive Testing Position Supine Internal Rotation 30 External Rotation 60 PT-OP-M Strength Start: 12/31/23 18:50 Freq: Status: Active Protocol: Document 01/13/24 08:20 LRN (Rec: 01/13/24 09:04 LRN [id number]) Hip Strength Hip Manual Muscle Testing Right External Rotation 4+ Good+ Comments Strength is 5/5 except as indicated above. Left Comments Strength is 5/5 except as indicated above. PT-OP-Q Treatments Start: 12/31/23 18:50 Freq: Status: Active Protocol: Document 01/20/24 13:05 LRN (Rec: 01/20/24 14:29 LRN [id number]) Therapeutic Exercises Supine Exercises Kegel Supine Exercise Name Gerri, then Hips on Pillow when contraction couldn't be felt Equipment Used Pillow Reps/Minutes 10' Comments Cued for PF lift. Noted abdominal doming with Kegel Deep Breathing Reps/Minutes 10' Comments Cued to exhale a little quicker as she breaths 9 sec in/10+ out. Sitting Exercises Deep Breathing Reps/Minutes 3' Manual Therapy Treatment Consent Patient gave verbal consent for manual Yes treatment Soft Tissue Mobilization Abdomen Body Location Bladder Mobilization Type Sustained Pressure Body Position Hooklying Self-Care/Home Management Treatment Education Other Education -Reviewed Bladder dairy and discussed fluid intake (AM/PM) pointing out more water creates greater times between voids, Norms for: urination times, times btn voids, bowel movement frequency, & nighttime voiding frequency. -Education in bladder irritants. -Education in urge deference technique. Activities Self-Care/Home Management Activities Issued and reviewed handouts for bladder irritants, urge deference technique. PT-OP-T Assessment and Plan Start: 12/31/23 18:50 Freq: Status: Active Protocol: Document 01/20/24 13:05 LRN (Rec: 01/20/24 14:29 [facility] [id number]) Physical Therapy Assessment Goals Four Impairment Pain with intercourse on insertion Short Term Goal (STG) Pt will be educated in genital /vulvar care, and will seek medication to improve tissue health of her labia minora. STG Duration 02/28/24 Online [employer] Strateg[employer] Goal (LTG) Eliminate pain with intercourse on initial insertion. LTG Duration 04/10/24 Three Impairment Urge urinary incontinence while heading to bathroom Short Term Goal (STG) Pt will be educated urge deference technique, bowel care, and BM massage to be able to prevent urinary leakage with a strong urge while at home. 01/20/24: Pt educated in urge deference techniqe. Pt reported having daily BMs last week while traveling. STG Duration 02/28/24 progressed 01/20/24 (need BM massage & bowel care) [facility] Goal (LTG) Strengthen PF to prevent urinary leakage with a strong urge when in public. LTG Duration 04/10/24 Two Impairment Increased frequency of urination (10x/day) Short Term Goal (STG) Pt will be educated in norms for voiding (fluid intake, frequency and urination time) and in bladder retraining to reduce times urinating during the day to no more than 6-7x/ day and 1x at night. 01/20/24: Pt educated in norms for fluid intake, norms for urinary frequency and urination times, times between voids and in bladder retraining (urge deference technique). Pt voiding mostly 7x/day, once 9x. Voiding time is 15 secs. STG Duration 02/28/24 progressed 01/20/24 (need voiding time 13 secs or less) [facility] Goal (LTG) Return pt to at least her prior level of function: voiding 10x/day without urinary leakage. 01/20/24: Pt voiding mostly 7x/day, once 9x. Voiding time is 15 secs LTG Duration 04/10/24 progressed 01/20/24 (need voiding time 7-10 secs) One Impairment Pt lacks an independent self care HEP. Short Term Goal (STG) Pt will be educated and able to demonstrate transfers to coordinate breath/PF contraction with transfer to lessen core abdominal pressure . 01/20/24: Pt educated in breathwork with transfers stand<>sit<>supine. STG Duration 02/28/24 initiated training 01/20/24 [facility] Goal (LTG) Pt will be independent in a self care HEP for PF strengthening. Late entry: 01/13/24: Kegels : Quick, Long hold, Aggrevators. LTG Duration 04/10/24 progressed on Assessment Summary Assessment 58 yo female w/ mixed urinary incontinence, drop of bladder into vaginal canal but not past her vaginal opening ( grade 3) in supine; tight L lateral wall, sluggish quick and weak Kegels. L lower outer labia is tender ( probably source of intercourse pain) and redness at labia minora bilaterally. Today, pt shows good slow breathing but not deeply; further monitoring needed. She appears to have poor coordination of PF contractions with bulging at perineum vs drawing up and in. She demonstrated good knowledge of coordinated breathwork with transfers with minimal to no cuing after training. Physical Therapy Plan Frequency and Duration Frequency of Treatment 1x/Week Duration of treatment (weeks) 12 Plan of Care Start Date 01/13/24 Plan of Care End Date 04/10/24 Next Visit Focus/Plan Next Note Type Treatment Note Next Visit Plan Possible use of biofeedback if external electrodes available . Assess if Vemg electrode is appropriate with respect to surgeries and AFib (anchors for bladder & bowel lift and A .Fib history). Next: Assess response to pt education in urge deference technique & review proper transfers w/breathwork and add Kegel if pt coordinated with breath. Pt education (for when having type 1-2 BM) and discuss norm of frequency of BM's, bowel massage, bowel care, and how to have bowel movements without holding breath and discuss squatty potty. PF training of properly coordinated Kegel with internal manual feedback & without use of substitute muscles. Assess PF lift with STM of bladder lift. Pt education proper vulvar and perineal care with handout. Discuss vaginal entry and possible reasons for pain and make recommendation to address with referring physician. Discuss & educate pt in squatting and lifting using breathwork and PF contraction for coordination of mvmt with breath & Kegel. Manual: improve abdominal soft tissue (bladder) mobility . EX: PF (on wedge)/hip mobility & strengthening, improve core/pelvic stability after pt is able to manage her core pressure. General POC: Pt education, self care management, manual therapy (abdominal STM and scar mob), biofeedback with vaginal sensor, therapeutic exercises, therapeutic activities, and neuromuscular reeducation.
--- NOTE | 2024-02-06 14:06 | PT.OTN ---
Current Diagnoses Urge incontinence (02/06/24) Mixed incontinence (02/06/24) Superficial (introital) dyspareunia (02/06/24) Physical Therapy Treatment Note PT-OP-A Visit Information Start: 12/31/23 18:50 Freq: Status: Active Protocol: Document 02/06/24 13:02 LRN (Rec: 02/06/24 13:50 LRN [id number]) Out-Patient Physical Therapy Visit Information Visit Information Visit Type Treatment Note Visit Start Time 13:02 Visit Stop Time 13:45 Visit Number 3 Evaluation Information Evaluation Date 01/13/24 Precautions Precautions Allergies, Back pain, hyste, breast reduction (1996), PFO, 2 C-sections, bladder and rectal prolapse repair 08/15, Factor 5 Leiden mutation. Records indicate hx of CVA, cardioversion 08/30/19, A. fib 2019, S/P patent foramen ovale closure (~2004), and History of endometrial ablation. PT-OP-B Current Condition Start: 12/31/23 18:50 Freq: Status: Active Protocol: Document 01/13/24 08:20 LRN (Rec: 01/13/24 09:04 LRN [id number]) Current Condition History of Current Condition Onset Date 15 yrs ag Current Complaints Worsened urinary incontinence all the time, urinating several times/night. History of Current Condition Pt states she was told she had a prolpase a couple yrs ago. She states in July 2023 she had a hyste and surgical repair of cystocele and rectocele at same time and was given a bladder sling and was given medication for urgency by Dr. Mcnamara. Was told since she has gained a couple of pounds, that she needs to lean backwards to get full emptying of bladder. States she feels her PF strength is more (as her spouse attests) but she complains of not being able to stop urine flow when heading to the bathroom. She has had bladder infections a couple times a yr until she started taking D-manouse. She is currently taking medication for a bladder infection (still on medication ). She c/o pain with intercourse with initial insertion. Pt is G3, P3; she reports 2 c-sections, 3rd child vaginal (note: records indicated 1st was vaginal). Prior Treatments and Tests Physical Therapy in [place] before surgery, and went to bladder doctor and was given medication for it and because of secondary side effects of dementia, she stopped. Records indicate: She had apparently been tried on 1st and second-line spasmolytic therapy by Urology at [facility] with little benefit yet significant side-effects. She is 08/08/23, status post TLH with BSO, laparoscopic vault suspension, laparoscopic enterocele repair, A&P repair, and mid urethral sling placement with cystoscopy. MD f/u visit on 09/24/23, pt showed lack of a normal stream following her mid urethral sling placement. Treatment Goals Patient/Caregiver Goals PT goals: - prior level of function: 10x /day but able to keep from leaking while going to the bathroom. - Strengthen PF to prevent urinary leakage to be able to stop the flow of urine with an urge. - Decrease pain with intial insertion with intercourse. - HEP. Personal Factors Other Personal Factors That May Effect Surgical repair (08/08/23) of Therapy/Recovery cystocele and rectocele at same time and was given a mid urethral bladder sling, 2 C-sections, Factor 5 Leiden mutation. Records indicate hx of CVA, hx of A. fib (2019), S/P patent foramen ovale closure (~2004), and history of endometrial ablation. PT-OP-C Subjective Start: 12/31/23 18:50 Freq: Status: Active Protocol: Document 02/06/24 13:02 LRN (Rec: 02/06/24 13:50 LRN [id number]) OP-PT Subjective Patient Comments Patient Comments Has been working on breathing. Still daily BMs. Thinks things are worse, urgency is worse and leaking walking to toilet, because [id number] passed. Patient Reported Progress Same PT-OP-I Pelvic Floor Start: 12/31/23 18:50 Freq: Status: Active Protocol: Document 01/13/24 08:20 LRN (Rec: 01/13/24 09:04 LRN [id number]) Pelvic Floor Assessment Urine Pelvic Floor Surgery Yes Leakage Size Medium Leakage Cause Cough,Lifting,Sneeze,Urge Leaks Per Day 10 Voiding Frequency 10 Nocturia 3-4 Pads Used In 24 Hours 5 Urine Pad Type Maxi Pad Pelvic Clock Pelvic Clock 12-3 Tightness Pelvic Clock 3-6 Tightness Pelvic Clock Other Tenderness at Pelvic Clock 1-2 and 6. Prolapse Cystocele Grade 3 Prolapse Comments Bladder visual at 1/2 of vaginal canal but has not extended to the vaginal opening in supine. Perineal Descent Resting Absent Contraction Ability Voluntary Contraction Weak Voluntary Relaxation Weak Manual Muscle Testing Left 2 Manual Muscle Testing Right 1 Manual Muscle Testing Anterior 1 Manual Muscle Testing Posterior 2 Number of Quick Contractions In 10 5 Seconds Comments Pelvic Floor Comments PF endurance not well palpable ; therefore the length of hold is questionable, possibly holding up to 5 secs with use of gluteal and abdominal muscles to assist with contraction. PF quick contractions are sluggish. R labia minora is tender at lower right region. Redness is present in bilateral labia minora. PT-OP-J Posture/Palpation/Skin Start: 12/31/23 18:50 Freq: Status: Active Protocol: Document 01/13/24 08:20 LRN (Rec: 01/13/24 09:04 LRN [id number]) Posture Evaluation Position Standing Head/C-Spine Posture Forward Head L-Spine Posture Shifted Left Pelvis Posture Anteriorly Tilted Weight Distribution Weight Shifted Left Hip Posture (R) Externally Rotated,(R) Abducted Comments Posture Comments L ear is low, Dowagers hump, straightened upper thoracic spine. PT-OP-K Range of Motion Start: 12/31/23 18:50 Freq: Status: Active Protocol: Document 01/13/24 08:20 LRN (Rec: 01/13/24 09:04 LRN [id number]) Lumbar Spine Range of Motion Lumbar Spine Active Degrees Testing Position Standing Flexion 70 Extension 10 Rotation Left 30 Rotation Right 35 Lateral Flexion Left 20 Lateral Flexion Right 15 Hip Goniometric Range of Motion Hip Right Passive Testing Position Supine Internal Rotation 35 External Rotation 65 Left Passive Testing Position Supine Internal Rotation 30 External Rotation 60 PT-OP-M Strength Start: 12/31/23 18:50 Freq: Status: Active Protocol: Document 01/13/24 08:20 LRN (Rec: 01/13/24 09:04 LRN [id number]) Hip Strength Hip Manual Muscle Testing Right External Rotation 4+ Good+ Comments Strength is 5/5 except as indicated above. Left Comments Strength is 5/5 except as indicated above. PT-OP-Q Treatments Start: 12/31/23 18:50 Freq: Status: Active Protocol: Document 02/06/24 13:02 LRN (Rec: 02/06/24 13:50 LRN [id number]) Therapeutic Exercises Supine Exercises Kegel Supine Exercise Name Quick Kegels: Quick and Long Hold with & w/o internal manual cuing Equipment Used Wedge Comments Cued to get double time rest after contract Deep Breathing Reps/Minutes 5' Comments Cued to exhale a little quicker as she breaths 9 sec in/10+ out. Manual Therapy Treatment Consent Patient gave verbal consent for manual Yes treatment Soft Tissue Mobilization PF Body Location Superficial & Deep PF ms Mobilization Type Sustained Pressure,Trigger Point Release Body Position Hooklying Comments PF clock 2, 3,5.6, 9 with extra time taken for TrP to reduce PF ms tone. Self-Care/Home Management Treatment Activities Self-Care/Home Management Activities Issued & reviewed handouts for bed mobility and transfers. Issued handouts for Genital Hygiene and Vulvar Care. PT-OP-T Assessment and Plan Start: 12/31/23 18:50 Freq: Status: Active Protocol: Document 02/06/24 13:02 LRN (Rec: 02/06/24 13:50 N [id number]) Physical Therapy Assessment Goals Four Impairment Pain with intercourse on insertion Short Term Goal (STG) Pt will be educated in genital /vulvar care, and will seek medication to improve tissue health of her labia minora. 02/06/24: Pt issued handout for genital/vulvar care. STG Duration 02/28/24 (02/06/24: need to discuss seeing of meds) [facility] Goal (LTG) Eliminate pain with intercourse on initial insertion. LTG Duration 04/10/24 Three Impairment Urge urinary incontinence while heading to bathroom Short Term Goal (STG) Pt will be educated urge deference technique, bowel care, and BM massage to be able to prevent urinary leakage with a strong urge while at home. 01/20/24: Pt educated in urge deference techniqe. Pt reported having daily BMs last week while traveling. STG Duration 02/28/24 progressed 01/20/24 (need BM massage & bowel care) [employer] Goal (LTG) Strengthen PF to prevent urinary leakage with a strong urge when in public. LTG Duration 04/10/24 Two Impairment Increased frequency of urination (10x/day) Short Term Goal (STG) Pt will be educated in norms for voiding (fluid intake, frequency and urination time) and in bladder retraining to reduce times urinating during the day to no more than 6-7x/ day and 1x at night. 01/20/24: Pt educated in norms for fluid intake, norms for urinary frequency and urination times, times between voids and in bladder retraining (urge deference technique). Pt voiding mostly 7x/day, once 9x. Voiding time is 15 secs. STG Duration 02/28/24 progressed 01/20/24 (need voiding time 13 secs or less) Balance Wheel Facer Goal (LTG) Return pt to at least her prior level of function: voiding 10x/day without urinary leakage. 01/20/24: Pt voiding mostly 7x/day, once 9x. Voiding time is 15 secs LTG Duration 04/10/24 progressed 01/20/24 (need voiding time 7-10 secs) One Impairment Pt lacks an independent self care HEP. Short Term Goal (STG) Pt will be educated and able to demonstrate transfers to coordinate breath/PF contraction with transfer to lessen core abdominal pressure . 01/20/24: Pt educated in breathwork with transfers stand<>sit<>supine. 02/06/24: Educated pt in breathwork w/transfers Sup<> sit<>stand and was able to perform with cuing.. STG Duration 02/28/24 Progressed: 01/20/24 [facility] Goal (LTG) Pt will be independent in a self care HEP for PF strengthening. Late entry: 01/13/24: Kegels : Quick, Long hold, Aggrevators. LTG Duration 04/10/24 progressed on Assessment Summary Assessment 58 yo female w/ mixed urinary incontinence, grade 3 cystocele in supine; tight L lateral wall, sluggish quick and weak Kegels. L lower outer labia tenderness and redness at labia minora bilaterally. Sweaker on L lateral wall then excore. Tightness and PF weakness persist. Physical Therapy Plan Frequency and Duration Frequency of Treatment 1x/Week Duration of treatment (weeks) 12 Plan of Care Start Date 01/13/24 Plan of Care End Date 04/10/24 Next Visit Focus/Plan Next Note Type Treatment Note Next Visit Plan Possible use of biofeedback if external electrodes available . Assess if Vemg electrode is appropriate with respect to surgeries and AFib (anchors for bladder & bowel lift and A .Fib history). Next: Assess response to pt education in urge deference technique & review proper transfers w/breathwork and add Kegel if pt coordinated with breath. Pt education (for when having type 1-2 BM) and discuss norm of frequency of BM's, bowel massage, bowel care, and how to have bowel movements without holding breath and discuss squatty potty. PF training of properly coordinated Kegel with internal manual feedback & without use of substitute muscles. Assess PF lift with STM of bladder lift. Pt education proper vulvar and perineal care with handout. Discuss vaginal entry and possible reasons for pain and make recommendation to address with referring physician. Discuss & educate pt in squatting and lifting using breathwork and PF contraction for coordination of mvmt with breath & Kegel. Manual: improve abdominal soft tissue (bladder) mobility . EX: PF (on wedge)/hip mobility & strengthening, improve core/pelvic stability after pt is able to manage her core pressure. General POC: Pt education, self care management, manual therapy (abdominal STM and scar mob), biofeedback with vaginal sensor, therapeutic exercises, therapeutic activities, and neuromuscular reeducation.
--- NOTE | 2024-02-13 15:57 | PT.OTN ---
Current Diagnoses Urge incontinence (02/13/24) Mixed incontinence (02/13/24) Superficial (introital) dyspareunia (02/13/24) Physical Therapy Treatment Note PT-OP-A Visit Information Start: 12/31/23 18:50 Freq: Status: Active Protocol: Document 02/13/24 13:02 LRN (Rec: 02/13/24 13:47 LRN [id number]) Out-Patient Physical Therapy Visit Information Visit Information Visit Type Treatment Note Visit Start Time 13:02 Visit Stop Time 13:44 Visit Number 4 Evaluation Information Evaluation Date 01/13/24 Precautions Precautions Allergies, Back pain, hyste, breast reduction (1996), PFO, 2 C-sections, bladder and rectal prolapse repair 08/15, Factor 5 Leiden mutation. Records indicate hx of CVA, cardioversion 08/30/19, A. fib 2019, S/P patent foramen ovale closure (~2004), and History of endometrial ablation. PT-OP-B Current Condition Start: 12/31/23 18:50 Freq: Status: Active Protocol: Document 01/13/24 08:20 LRN (Rec: 01/13/24 09:04 LRN [id number]) Current Condition History of Current Condition Onset Date 15 yrs ag Current Complaints Worsened urinary incontinence all the time, urinating several times/night. History of Current Condition Pt states she was told she had a prolpase a couple yrs ago. She states in July 2023 she had a hyste and surgical repair of cystocele and rectocele at same time and was given a bladder sling and was given medication for urgency by Dr. Mcnamara. Was told since she has gained a couple of pounds, that she needs to lean backwards to get full emptying of bladder. States she feels her PF strength is more (as her spouse attests) but she complains of not being able to stop urine flow when heading to the bathroom. She has had bladder infections a couple times a yr until she started taking D-manouse. She is currently taking medication for a bladder infection (still on medication ). She c/o pain with intercourse with initial insertion. Pt is G3, P3; she reports 2 c-sections, 3rd child vaginal (note: records indicated 1st was vaginal). Prior Treatments and Tests Physical Therapy in [place] before surgery, and went to bladder doctor and was given medication for it and because of secondary side effects of dementia, she stopped. Records indicate: She had apparently been tried on 1st and second-line spasmolytic therapy by Urology at [facility] with little benefit yet significant side-effects. She is 08/08/23, status post TLH with BSO, laparoscopic vault suspension, laparoscopic enterocele repair, A&P repair, and mid urethral sling placement with cystoscopy. MD f/u visit on 09/24/23, pt showed lack of a normal stream following her mid urethral sling placement. Treatment Goals Patient/Caregiver Goals PT goals: - prior level of function: 10x /day but able to keep from leaking while going to the bathroom. - Strengthen PF to prevent urinary leakage to be able to stop the flow of urine with an urge. - Decrease pain with intial insertion with intercourse. - HEP. Personal Factors Other Personal Factors That May Effect Surgical repair (08/08/23) of Therapy/Recovery cystocele and rectocele at same time and was given a mid urethral bladder sling, 2 C-sections, Factor 5 Leiden mutation. Records indicate hx of CVA, hx of A. fib (2019), S/P patent foramen ovale closure (~2004), and history of endometrial ablation. PT-OP-C Subjective Start: 12/31/23 18:50 Freq: Status: Active Protocol: Document 02/13/24 13:02 LRN (Rec: 02/13/24 13:47 LRN [id number]) OP-PT Subjective Patient Comments Patient Comments ...... PT-OP-I Pelvic Floor Start: 12/31/23 18:50 Freq: Status: Active Protocol: Document 01/13/24 08:20 LRN (Rec: 01/13/24 09:04 LRN [id number]) Pelvic Floor Assessment Urine Pelvic Floor Surgery Yes Leakage Size Medium Leakage Cause Cough,Lifting,Sneeze,Urge Leaks Per Day 10 Voiding Frequency 10 Nocturia 3-4 Pads Used In 24 Hours 5 Urine Pad Type Maxi Pad Pelvic Clock Pelvic Clock 12-3 Tightness Pelvic Clock 3-6 Tightness Pelvic Clock Other Tenderness at Pelvic Clock 1-2 and 6. Prolapse Cystocele Grade 3 Prolapse Comments Bladder visual at 1/2 of vaginal canal but has not extended to the vaginal opening in supine. Perineal Descent Resting Absent Contraction Ability Voluntary Contraction Weak Voluntary Relaxation Weak Manual Muscle Testing Left 2 Manual Muscle Testing Right 1 Manual Muscle Testing Anterior 1 Manual Muscle Testing Posterior 2 Number of Quick Contractions In 10 5 Seconds Comments Pelvic Floor Comments PF endurance not well palpable ; therefore the length of hold is questionable, possibly holding up to 5 secs with use of gluteal and abdominal muscles to assist with contraction. PF quick contractions are sluggish. R labia minora is tender at lower right region. Redness is present in bilateral labia minora. PT-OP-J Posture/Palpation/Skin Start: 12/31/23 18:50 Freq: Status: Active Protocol: Document 01/13/24 08:20 LRN (Rec: 01/13/24 09:04 LRN [id number]) Posture Evaluation Position Standing Head/C-Spine Posture Forward Head L-Spine Posture Shifted Left Pelvis Posture Anteriorly Tilted Weight Distribution Weight Shifted Left Hip Posture (R) Externally Rotated,(R) Abducted Comments Posture Comments L ear is low, Dowagers hump, straightened upper thoracic spine. PT-OP-K Range of Motion Start: 12/31/23 18:50 Freq: Status: Active Protocol: Document 01/13/24 08:20 LRN (Rec: 01/13/24 09:04 LRN [id number]) Lumbar Spine Range of Motion Lumbar Spine Active Degrees Testing Position Standing Flexion 70 Extension 10 Rotation Left 30 Rotation Right 35 Lateral Flexion Left 20 Lateral Flexion Right 15 Hip Goniometric Range of Motion Hip Right Passive Testing Position Supine Internal Rotation 35 External Rotation 65 Left Passive Testing Position Supine Internal Rotation 30 External Rotation 60 PT-OP-M Strength Start: 12/31/23 18:50 Freq: Status: Active Protocol: Document 01/13/24 08:20 LRN (Rec: 01/13/24 09:04 LRN [id number]) Hip Strength Hip Manual Muscle Testing Right External Rotation 4+ Good+ Comments Strength is 5/5 except as indicated above. Left Comments Strength is 5/5 except as indicated above. PT-OP-Q Treatments Start: 12/31/23 18:50 Freq: Status: Active Protocol: Document 02/13/24 13:02 LRN (Rec: 02/13/24 13:47 LRN [id number]) Therapeutic Exercises Supine Exercises Kegel Supine Exercise Name Quick Kegels: Quick and Long Hold with & w/o internal manual cuing Equipment Used Wedge/Ball/TB to hold ball in place Reps/Minutes 12' Comments Cued to get double time rest after contract Deep Breathing Reps/Minutes 8' Comments Cued to exhale a little quicker as she breaths 9 sec in/10+ out. Manual Therapy Treatment Soft Tissue Mobilization PF Body Location Perineal node Mobilization Type Myofascial Release Body Position Supine Comments Stretch mainly inferiorly: knees in, knees out, knees LTR - 8x each direction. Self-Care/Home Management Treatment Education Other Education Discussed and answered questions regarding genital/ vulvar care mostly related to use of only water to rinse the area. PT-OP-T Assessment and Plan Start: 12/31/23 18:50 Freq: Status: Active Protocol: Document 02/13/24 13:02 LRN (Rec: 02/13/24 13:47 LRN [id number]) Physical Therapy Assessment Goals Four Impairment Pain with intercourse on insertion Short Term Goal (STG) Pt will be educated in genital /vulvar care, and will seek medication to improve tissue health of her labia minora. 02/06/24: Pt issued handout for genital/vulvar care. STG Duration 02/28/24 (02/06/24: need to discuss ?med use) Fpc Goal (LTG) Eliminate pain with intercourse on initial insertion. LTG Duration 04/10/24 Three Impairment Urge urinary incontinence while heading to bathroom Short Term Goal (STG) Pt will be educated urge deference technique, bowel care, and BM massage to be able to prevent urinary leakage with a strong urge while at home. 01/20/24: Pt educated in urge deference techniqe. Pt reported having daily BMs last week while traveling. STG Duration 02/28/24 progressed 01/20/24 (need BM massage & bowel care) Fpc Goal (LTG) Strengthen PF to prevent urinary leakage with a strong urge when in public. 02/13/24: Pt started on Kegels 01/13/24, I/S to do Kegels with glut squeeze & R BKFO. LTG Duration 04/10/24 progressed 02/13/24 Two Impairment Increased frequency of urination (10x/day) Short Term Goal (STG) Pt will be educated in norms for voiding (fluid intake, frequency and urination time) and in bladder retraining to reduce times urinating during the day to no more than 6-7x/ day and 1x at night. 01/20/24: Pt educated in norms for fluid intake, norms for urinary frequency and urination times, times between voids and in bladder retraining (urge deference technique). Pt voiding mostly 7x/day, once 9x. Voiding time is 15 secs. STG Duration 02/28/24 progressed 01/20/24 (need voiding time 13 secs or less) [employer] Goal (LTG) Return pt to at least her prior level of function: voiding 10x/day without urinary leakage. 01/20/24: Pt voiding mostly 7x/day, once 9x. Voiding time is 15 secs LTG Duration 04/10/24 progressed 01/20/24 (need voiding time 7-10 secs) One Impairment Pt lacks an independent self care HEP. Short Term Goal (STG) Pt will be educated and able to demonstrate transfers to coordinate breath/PF contraction with transfer to lessen core abdominal pressure . 01/20/24: Pt educated in breathwork with transfers stand<>sit<>supine. 02/06/24: Educated pt in breathwork w/transfers Sup<> sit<>stand and was able to perform with cuing. STG Duration 02/28/24 Progressed: 02/06/24 [employer] Goal (LTG) Pt will be independent in a self care HEP for PF strengthening. Late entry: 01/13/24: Kegels : Quick, Long hold, Aggrevators. LTG Duration 04/10/24 progressed on Assessment Summary Assessment 58 yo female w/mixed urinary incontinence, grade 3 cystocele in supine; tight L lateral wall, sluggish quick and weak Kegels. Today, pt has no c/o pain in labia minora or majora and coloration is normal. Palpation: weaker on L lateral wall and posterior PF with very sluggish contraction and relaxation. Physical Therapy Plan Frequency and Duration Frequency of Treatment 1x/Week Duration of treatment (weeks) 12 Plan of Care Start Date 01/13/24 Plan of Care End Date 04/10/24 Next Visit Focus/Plan Next Note Type Treatment Note Next Visit Plan Possible use of biofeedback ( no stim) if external electrodes available. Next: Assess again response to use of urge deference technique & review proper transfers w/breathwork/add Kegel. Discuss & educate pt in squatting and lifting using breathwork and PF contraction for coordination of mvmt with breath & Kegel. Address type 1 BMs. Pt education (for when having type 1-2 BM) and discuss norm of frequency of BM's, bowel massage, bowel care, and how to have bowel movements without holding breath and discuss squatty potty. PF training of properly coordinated Kegel with internal manual feedback & without use of substitute muscles. Assess PF lift with STM of bladder lift. Manual: improve abdominal soft tissue (bladder) mobility . EX: PF (on wedge)/hip mobility & strengthening, improve core/pelvic stability after pt is able to manage her core pressure. General POC: Pt education, self care management, manual therapy (abdominal STM and scar mob), biofeedback with vaginal sensor, therapeutic exercises, therapeutic activities, and neuromuscular reeducation.
--- NOTE | 2024-03-05 16:01 | PT.OTN ---
Current Diagnoses Urge incontinence (03/05/24) Mixed incontinence (03/05/24) Superficial (introital) dyspareunia (03/05/24) Physical Therapy Treatment Note PT-OP-A Visit Information Start: 12/31/23 18:50 Freq: Status: Active Protocol: Document 03/05/24 13:54 LRN (Rec: 03/05/24 14:35 LRN [id number]) Out-Patient Physical Therapy Visit Information Visit Information Visit Type Treatment Note Visit Start Time 13:54 Visit Stop Time 14:34 Visit Number 08/21 Evaluation Information Evaluation Date 01/13/24 Precautions Precautions Allergies, Back pain, hyste, breast reduction (1996), PFO, 2 C-sections, bladder and rectal prolapse repair 08/15, Factor 5 Leiden mutation. Records indicate hx of CVA, cardioversion 08/30/19, A. fib 2019, S/P patent foramen ovale closure (~2004), and History of endometrial ablation. PT-OP-B Current Condition Start: 12/31/23 18:50 Freq: Status: Active Protocol: Document 01/13/24 08:20 LRN (Rec: 01/13/24 09:04 LRN [id number]) Current Condition History of Current Condition Onset Date 15 yrs ag Current Complaints Worsened urinary incontinence all the time, urinating several times/night. History of Current Condition Pt states she was told she had a prolpase a couple yrs ago. She states in July 2023 she had a hyste and surgical repair of cystocele and rectocele at same time and was given a bladder sling and was given medication for urgency by Dr. Mcnamara. Was told since she has gained a couple of pounds, that she needs to lean backwards to get full emptying of bladder. States she feels her PF strength is more (as her spouse attests) but she complains of not being able to stop urine flow when heading to the bathroom. She has had bladder infections a couple times a yr until she started taking D-manouse. She is currently taking medication for a bladder infection (still on medication ). She c/o pain with intercourse with initial insertion. Pt is G3, P3; she reports 2 c-sections, 3rd child vaginal (note: records indicated 1st was vaginal). Prior Treatments and Tests Physical Therapy in [place] before surgery, and went to bladder doctor and was given medication for it and because of secondary side effects of dementia, she stopped. Records indicate: She had apparently been tried on 1st and second-line spasmolytic therapy by Urology at [facility] with little benefit yet significant side-effects. She is 08/08/23, status post TLH with BSO, laparoscopic vault suspension, laparoscopic enterocele repair, A&P repair, and mid urethral sling placement with cystoscopy. MD f/u visit on 09/24/23, pt showed lack of a normal stream following her mid urethral sling placement. Treatment Goals Patient/Caregiver Goals PT goals: - prior level of function: 10x /day but able to keep from leaking while going to the bathroom. - Strengthen PF to prevent urinary leakage to be able to stop the flow of urine with an urge. - Decrease pain with intial insertion with intercourse. - HEP. Personal Factors Other Personal Factors That May Effect Surgical repair (08/08/23) of Therapy/Recovery cystocele and rectocele at same time and was given a mid urethral bladder sling, 2 C-sections, Factor 5 Leiden mutation. Records indicate hx of CVA, hx of A. fib (2019), S/P patent foramen ovale closure (~2004), and history of endometrial ablation. PT-OP-C Subjective Start: 12/31/23 18:50 Freq: Status: Active Protocol: Document 03/05/24 13:54 LRN (Rec: 03/05/24 14:35 LRN [id number]) OP-PT Subjective Patient Comments Patient Comments No changes. PT-OP-I Pelvic Floor Start: 12/31/23 18:50 Freq: Status: Active Protocol: Document 03/05/24 13:54 LRN (Rec: 03/05/24 14:35 LRN [id number]) Pelvic Floor Assessment Comments Pelvic Floor Comments PF Sup - Sit - Stand - PT-OP-J Posture/Palpation/Skin Start: 12/31/23 18:50 Freq: Status: Active Protocol: Document 01/13/24 08:20 LRN (Rec: 01/13/24 09:04 LRN [id number]) Posture Evaluation Position Standing Head/C-Spine Posture Forward Head L-Spine Posture Shifted Left Pelvis Posture Anteriorly Tilted Weight Distribution Weight Shifted Left Hip Posture (R) Externally Rotated,(R) Abducted Comments Posture Comments L ear is low, Dowagers hump, straightened upper thoracic spine. PT-OP-K Range of Motion Start: 12/31/23 18:50 Freq: Status: Active Protocol: Document 01/13/24 08:20 LRN (Rec: 01/13/24 09:04 LRN [id number]) Lumbar Spine Range of Motion Lumbar Spine Active Degrees Testing Position Standing Flexion 70 Extension 10 Rotation Left 30 Rotation Right 35 Lateral Flexion Left 20 Lateral Flexion Right 15 Hip Goniometric Range of Motion Hip Right Passive Testing Position Supine Internal Rotation 35 External Rotation 65 Left Passive Testing Position Supine Internal Rotation 30 External Rotation 60 PT-OP-M Strength Start: 12/31/23 18:50 Freq: Status: Active Protocol: Document 01/13/24 08:20 LRN (Rec: 01/13/24 09:04 LRN [id number]) Hip Strength Hip Manual Muscle Testing Right External Rotation 4+ Good+ Comments Strength is 5/5 except as indicated above. Left Comments Strength is 5/5 except as indicated above. PT-OP-Q Treatments Start: 12/31/23 18:50 Freq: Status: Active Protocol: Document 03/05/24 13:54 LRN (Rec: 03/05/24 14:35 LRN [id number]) Therapeutic Activity Therapeutic Activity Transfer trng w/Kegel & Breath Name Kegel/breathe with sup<>sit<> stand Reps/Minutes 8' Neuro Re-Education Treatment Coordination Activities PF in isolation of ABdom's Details PF Contractions while isolating Abdominals in 3 positions and w/cough,sneze Reps/Duration 31' Comments For: Sup<>Sit, Sit<>stand, Cough, Sneeze. Abdominal ms overpower the PF muscles with trnasfers and in sit & stand. PT-OP-T Assessment and Plan Start: 12/31/23 18:50 Freq: Status: Active Protocol: Document 03/05/24 13:54 LRN (Rec: 03/05/24 14:35 LRN [id number]) Physical Therapy Assessment Goals Four Impairment Pain with intercourse on insertion Short Term Goal (STG) Pt will be educated in genital /vulvar care, and will seek medication to improve tissue health of her labia minora. 02/06/24: Pt issued handout for genital/vulvar care. STG Duration 02/28/24 (02/06/24: need to discuss ?med use) Alf Goal (LTG) Eliminate pain with intercourse on initial insertion. LTG Duration 04/10/24 Three Impairment Urge urinary incontinence while heading to bathroom Short Term Goal (STG) Pt will be educated urge deference technique, bowel care, and BM massage to be able to prevent urinary leakage with a strong urge while at home. 01/20/24: Pt educated in urge deference techniqe. Pt reported having daily BMs last week while traveling. STG Duration 02/28/24 progressed 01/20/24 (need BM massage & bowel care) Dermatological Surgeon Goal (LTG) Strengthen PF to prevent urinary leakage with a strong urge when in public. 02/13/24: Pt started on Kegels 01/13/24, I/S to do Kegels with glut squeeze & R BKFO. LTG Duration 04/10/24 progressed 02/13/24 Two Impairment Increased frequency of urination (10x/day) Short Term Goal (STG) Pt will be educated in norms for voiding (fluid intake, frequency and urination time) and in bladder retraining to reduce times urinating during the day to no more than 6-7x/ day and 1x at night. 01/20/24: Pt educated in norms for fluid intake, norms for urinary frequency and urination times, times between voids and in bladder retraining (urge deference technique). Pt voiding mostly 7x/day, once 9x. Voiding time is 15 secs. STG Duration 02/28/24 progressed 01/20/24 (need voiding time 13 secs or less) Dermatological Surgeon Goal (LTG) Return pt to at least her prior level of function: voiding 10x/day without urinary leakage. 01/20/24: Pt voiding mostly 7x/day, once 9x. Voiding time is 15 secs LTG Duration 04/10/24 progressed 01/20/24 (need voiding time 7-10 secs) One Impairment Pt lacks an independent self care HEP. Short Term Goal (STG) Pt will be educated and able to demonstrate transfers to coordinate breath/PF contraction with transfer to lessen core abdominal pressure . 01/20/24: Pt educated in breathwork with transfers stand<>sit<>supine. 02/06/24: Educated pt in breathwork w/transfers Sup<> sit<>stand and was able to perform with cuing. STG Duration 02/28/24 Progressed: 02/06/24 Dermatological Surgeon Goal (LTG) Pt will be independent in a self care HEP for PF strengthening. Late entry: 01/13/24: Kegels : Quick, Long hold, Aggrevators. LTG Duration 04/10/24 progressed on Assessment Summary Assessment 58 yo female w/mixed urinary incontinence, grade 3 cystocele in supine; tight L lateral wall, sluggish quick and weak Kegels. Pt needs further training with core pressure mgmt w/transfers & probably with ADLs. Her abdominal ms tone is > PF ms in sit with endurance hold and stand for quick and endurance holds. Supine her abdominal ms tone increases with PF contraction to assist. Physical Therapy Plan Frequency and Duration Frequency of Treatment 1x/Week Duration of treatment (weeks) 12 Plan of Care Start Date 01/13/24 Plan of Care End Date 04/10/24 Next Visit Focus/Plan Next Note Type Treatment Note Next Visit Plan Next: - Address type 1 BMs ( STG3). Pt education (for when having type 1-2 BM) and discuss norm of frequency of BM's, bowel massage, bowel care, and how to have bowel movements without holding breath and discuss squatty potty. - Discuss pt/MD discussion of meds to improve tissue health of her labia minora (STG4). - Manual stretch to PF- L lateral wall, f/b - PF/wedge strengthening & wedge/neuro- [place] to reduce abdominal use with PF contractions with strengthening and endurance work. -Assess proper use of urge deference technique & review proper transfers w/Kegel/ breathwork. -Discuss & educate pt in squatting and lifting using coordination of Kegel/ breathwork/abdominal relaxation. -Assess PF lift with STM of bladder lift. -Manual: improve abdominal soft tissue (bladder) mobility . General POC: Therapeutic Ex ( PF (on wedge)/hip mobility & strengthening, improve core/ pelvic stability after pt is able to manage her core pressure), Pt education, self care management, manual therapy (abdominal STM and scar mob), biofeedback with vaginal sensor, therapeutic activities, and neuromuscular reeducation.
--- NOTE | 2024-03-12 16:31 | PT.OTN ---
Current Diagnoses Urge incontinence (03/12/24) Mixed incontinence (03/12/24) Superficial (introital) dyspareunia (03/12/24) Physical Therapy Treatment Note PT-OP-A Visit Information Start: 12/31/23 18:50 Freq: Status: Active Protocol: Document 03/12/24 07:30 LRN (Rec: 03/12/24 08:20 LRN [id number]) Out-Patient Physical Therapy Visit Information Visit Information Visit Type Treatment Note Visit Start Time 07:30 Visit Stop Time 08:12 Visit Number 09/21 Evaluation Information Evaluation Date 01/13/24 Precautions Precautions Allergies, Back pain, hyste, breast reduction (1996), PFO, 2 C-sections, bladder and rectal prolapse repair 08/15, Factor 5 Leiden mutation. Records indicate hx of CVA, cardioversion 08/30/19, A. fib 2019, S/P patent foramen ovale closure (~2004), and History of endometrial ablation. PT-OP-B Current Condition Start: 12/31/23 18:50 Freq: Status: Active Protocol: Document 01/13/24 08:20 LRN (Rec: 01/13/24 09:04 LRN [id number]) Current Condition History of Current Condition Onset Date 15 yrs ag Current Complaints Worsened urinary incontinence all the time, urinating several times/night. History of Current Condition Pt states she was told she had a prolpase a couple yrs ago. She states in July 2023 she had a hyste and surgical repair of cystocele and rectocele at same time and was given a bladder sling and was given medication for urgency by Dr. Mcnamara. Was told since she has gained a couple of pounds, that she needs to lean backwards to get full emptying of bladder. States she feels her PF strength is more (as her spouse attests) but she complains of not being able to stop urine flow when heading to the bathroom. She has had bladder infections a couple times a yr until she started taking D-manouse. She is currently taking medication for a bladder infection (still on medication ). She c/o pain with intercourse with initial insertion. Pt is G3, P3; she reports 2 c-sections, 3rd child vaginal (note: records indicated 1st was vaginal). Prior Treatments and Tests Physical Therapy in [place] before surgery, and went to bladder doctor and was given medication for it and because of secondary side effects of dementia, she stopped. Records indicate: She had apparently been tried on 1st and second-line spasmolytic therapy by Urology at [facility] with little benefit yet significant side-effects. She is 08/08/23, status post TLH with BSO, laparoscopic vault suspension, laparoscopic enterocele repair, A&P repair, and mid urethral sling placement with cystoscopy. MD f/u visit on 09/24/23, pt showed lack of a normal stream following her mid urethral sling placement. Treatment Goals Patient/Caregiver Goals PT goals: - prior level of function: 10x /day but able to keep from leaking while going to the bathroom. - Strengthen PF to prevent urinary leakage to be able to stop the flow of urine with an urge. - Decrease pain with intial insertion with intercourse. - HEP. Personal Factors Other Personal Factors That May Effect Surgical repair (08/08/23) of Therapy/Recovery cystocele and rectocele at same time and was given a mid urethral bladder sling, 2 C-sections, Factor 5 Leiden mutation. Records indicate hx of CVA, hx of A. fib (2019), S/P patent foramen ovale closure (~2004), and history of endometrial ablation. PT-OP-C Subjective Start: 12/31/23 18:50 Freq: Status: Active Protocol: Document 03/12/24 07:30 LRN (Rec: 03/12/24 08:20 LRN [id number]) OP-PT Subjective Patient Comments Patient Comments Does cream for the PF that MD gave not good at remembering it. Did not bring VEMG electrode. PT-OP-I Pelvic Floor Start: 12/31/23 18:50 Freq: Status: Active Protocol: Document 03/05/24 13:54 LRN (Rec: 03/05/24 14:35 LRN [id number]) Pelvic Floor Assessment Comments Pelvic Floor Comments PF Sup - Sit - Stand - PT-OP-J Posture/Palpation/Skin Start: 12/31/23 18:50 Freq: Status: Active Protocol: Document 01/13/24 08:20 LRN (Rec: 01/13/24 09:04 LRN [id number]) Posture Evaluation Position Standing Head/C-Spine Posture Forward Head L-Spine Posture Shifted Left Pelvis Posture Anteriorly Tilted Weight Distribution Weight Shifted Left Hip Posture (R) Externally Rotated,(R) Abducted Comments Posture Comments L ear is low, Dowagers hump, straightened upper thoracic spine. PT-OP-K Range of Motion Start: 12/31/23 18:50 Freq: Status: Active Protocol: Document 01/13/24 08:20 LRN (Rec: 01/13/24 09:04 LRN [id number]) Lumbar Spine Range of Motion Lumbar Spine Active Degrees Testing Position Standing Flexion 70 Extension 10 Rotation Left 30 Rotation Right 35 Lateral Flexion Left 20 Lateral Flexion Right 15 Hip Goniometric Range of Motion Hip Right Passive Testing Position Supine Internal Rotation 35 External Rotation 65 Left Passive Testing Position Supine Internal Rotation 30 External Rotation 60 PT-OP-M Strength Start: 12/31/23 18:50 Freq: Status: Active Protocol: Document 01/13/24 08:20 LRN (Rec: 01/13/24 09:04 LRN [id number]) Hip Strength Hip Manual Muscle Testing Right External Rotation 4+ Good+ Comments Strength is 5/5 except as indicated above. Left Comments Strength is 5/5 except as indicated above. PT-OP-Q Treatments Start: 12/31/23 18:50 Freq: Status: Active Protocol: Document 03/12/24 07:30 LRN (Rec: 03/12/24 08:20 LRN [id number]) Therapeutic Exercises Supine Exercises Happy Baby Pose Reps/Minutes 6' Comments Extra time to determine max chloé stretch and positioning Manual Therapy Treatment Soft Tissue Mobilization PF Body Location Superficial PF clock 4-6, deep focus on 2-3 PF clock Mobilization Type Strumming,Sustained Pressure Intensity/Depth Moderate Body Position Hooklying Neuro Re-Education Treatment Coordination Activities PF Details Coordination of PF quick and long hold contractions w/o gluts, ABdoms Equipment Manual palp of PF w/vc's Reps/Duration 10' Self-Care/Home Management Treatment Activities Self-Care/Home Management Activities Partially reviewed self care handouts: General Vulvar Care & Genital Hygiene for Women. I/S pt in HEP: PF quick (L side to start) and long hold x 3-5 reps 6x/day and daily practice of cough, laugh 3x 6x /day to draw up and in, and coordinate with abdoms. PT-OP-T Assessment and Plan Start: 12/31/23 18:50 Freq: Status: Active Protocol: Document 03/12/24 07:30 LRN (Rec: 03/12/24 08:20 LRN [id number]) Physical Therapy Assessment Goals Four Impairment Pain with intercourse on insertion Short Term Goal (STG) Pt will be educated in genital /vulvar care, and will seek medication to improve tissue health of her labia minora. 02/06/24: Pt issued handout for genital/vulvar care. 03/12/24: Been using cream since September (after using x 1 resulting in pop and bleeding) STG Duration 02/28/24 (03/12/24: MET GOAL ) Development Eng Goal (LTG) Eliminate pain with intercourse on initial insertion. 03/12/24: Pain with insertion , a little better since PF stretching last session. LTG Duration 04/10/24 progressed 03/12/24 Three Impairment Urge urinary incontinence while heading to bathroom Short Term Goal (STG) Pt will be educated urge deference technique, bowel care, and BM massage to be able to prevent urinary leakage with a strong urge while at home. 01/20/24: Pt educated in urge deference techniqe. Pt reported having daily BMs last week while traveling. 03/12/24: States she is having dialy BMs and is not having any type 1 BMs. STG Duration 02/28/24 progressed 01/20/24 (having urinary leakage w/ strong urge) Senior Care Goal (LTG) Strengthen PF to prevent urinary leakage with a strong urge when in public. 02/13/24: Pt started on Kegels 01/13/24, I/S to do Kegels with glut squeeze & R BKFO. LTG Duration 04/10/24 progressed 02/13/24 Two Impairment Increased frequency of urination (10x/day) Short Term Goal (STG) Pt will be educated in norms for voiding (fluid intake, frequency and urination time) and in bladder retraining to reduce times urinating during the day to no more than 6-7x/ day and 1x at night. 01/20/24: Pt educated in norms for fluid intake, norms for urinary frequency and urination times, times between voids and in bladder retraining (urge deference technique). Pt voiding mostly 7x/day, once 9x. Voiding time is 15 secs. STG Duration 02/28/24 progressed 01/20/24 (need voiding time 13 secs or less) Senior Care Goal (LTG) Return pt to at least her prior level of function: voiding 10x/day without urinary leakage. 01/20/24: Pt voiding mostly 7x/day, once 9x. Voiding time is 15 secs LTG Duration 04/10/24 progressed 01/20/24 (need voiding time 7-10 secs) One Impairment Pt lacks an independent self care HEP. Short Term Goal (STG) Pt will be educated and able to demonstrate transfers to coordinate breath/PF contraction with transfer to lessen core abdominal pressure . 01/20/24: Pt educated in breathwork with transfers stand<>sit<>supine. 02/06/24: Educated pt in breathwork w/transfers Sup<> sit<>stand and was able to perform with cuing. STG Duration 02/28/24 Progressed: (pt needs to demonsrtate) Senior Care Goal (LTG) Pt will be independent in a self care HEP for PF strengthening. Late entry: 01/13/24: Kegels : Quick, Long hold, Aggrevators. LTG Duration 04/10/24 progressed on Assessment Summary Assessment Pt BM's now reported normal and daily; therefore educ in bowel massage not needed. She needs reminders of breath w/ transfers. Per internal assessment, she had bulging out onto PF with contractions, cough, laugh, but was able to pull up and in after training . Pt PF is very weak with endurance holds. Pt forgets to use urge deference techique properly and is not consistent with proper core pressure mbmt. Physical Therapy Plan Frequency and Duration Frequency of Treatment 1x/Week Duration of treatment (weeks) 12 Plan of Care Start Date 01/13/24 Plan of Care End Date 04/10/24 Next Visit Focus/Plan Next Note Type Treatment Note Next Visit Plan - Manual: stretch to PF- L lateral wall, f/b - PF/wedge strengthening & wedge/neuro- antonieta to reduce abdominal use with PF contractions with strengthening and endurance work. Manual: (check if IUD) Abdominal region for scar mob restrictions - improve abdominal soft tissue (bladder ) mobility, -Assess PF lift with STM of bladder lift. -Assess proper use of urge deference technique & review proper transfers w/Kegel/ breathwork. -Discuss & educate pt in squatting and lifting using coordination of Kegel/ breathwork/abdominal relaxation. General POC: Therapeutic Ex ( PF (on wedge)/hip mobility & strengthening, improve core/ pelvic stability after pt is able to manage her core pressure), Pt education, self care management, manual therapy (abdominal STM and scar mob), biofeedback with vaginal sensor, therapeutic activities, and neuromuscular reeducation.
--- NOTE | 2024-03-16 17:04 | PT.OTN ---
Current Diagnoses Urge incontinence (03/16/24) Mixed incontinence (03/16/24) Superficial (introital) dyspareunia (03/16/24) Physical Therapy Treatment Note PT-OP-A Visit Information Start: 12/31/23 18:50 Freq: Status: Active Protocol: Document 03/16/24 07:34 LRN (Rec: 03/16/24 08:19 LRN [id number]) Out-Patient Physical Therapy Visit Information Visit Information Visit Type Treatment Note Visit Start Time 07:34 Visit Stop Time 08:14 Visit Number 10/21 Evaluation Information Evaluation Date 01/13/24 Precautions Precautions Allergies, Back pain, hyste, breast reduction (1996), PFO, 2 C-sections, bladder and rectal prolapse repair 08/15, Factor 5 Leiden mutation. Records indicate hx of CVA, cardioversion 08/30/19, A. fib 2019, S/P patent foramen ovale closure (~2004), and History of endometrial ablation. PT-OP-B Current Condition Start: 12/31/23 18:50 Freq: Status: Active Protocol: Document 01/13/24 08:20 LRN (Rec: 01/13/24 09:04 LRN [id number]) Current Condition History of Current Condition Onset Date 15 yrs ag Current Complaints Worsened urinary incontinence all the time, urinating several times/night. History of Current Condition Pt states she was told she had a prolpase a couple yrs ago. She states in July 2023 she had a hyste and surgical repair of cystocele and rectocele at same time and was given a bladder sling and was given medication for urgency by Dr. Mcnamara. Was told since she has gained a couple of pounds, that she needs to lean backwards to get full emptying of bladder. States she feels her PF strength is more (as her spouse attests) but she complains of not being able to stop urine flow when heading to the bathroom. She has had bladder infections a couple times a yr until she started taking D-manouse. She is currently taking medication for a bladder infection (still on medication ). She c/o pain with intercourse with initial insertion. Pt is G3, P3; she reports 2 c-sections, 3rd child vaginal (note: records indicated 1st was vaginal). Prior Treatments and Tests Physical Therapy in [place] before surgery, and went to bladder doctor and was given medication for it and because of secondary side effects of dementia, she stopped. Records indicate: She had apparently been tried on 1st and second-line spasmolytic therapy by Urology at [facility] with little benefit yet significant side-effects. She is 08/08/23, status post TLH with BSO, laparoscopic vault suspension, laparoscopic enterocele repair, A&P repair, and mid urethral sling placement with cystoscopy. MD f/u visit on 09/24/23, pt showed lack of a normal stream following her mid urethral sling placement. Treatment Goals Patient/Caregiver Goals PT goals: - prior level of function: 10x /day but able to keep from leaking while going to the bathroom. - Strengthen PF to prevent urinary leakage to be able to stop the flow of urine with an urge. - Decrease pain with intial insertion with intercourse. - HEP. Personal Factors Other Personal Factors That May Effect Surgical repair (08/08/23) of Therapy/Recovery cystocele and rectocele at same time and was given a mid urethral bladder sling, 2 C-sections, Factor 5 Leiden mutation. Records indicate hx of CVA, hx of A. fib (2019), S/P patent foramen ovale closure (~2004), and history of endometrial ablation. PT-OP-C Subjective Start: 12/31/23 18:50 Freq: Status: Active Protocol: Document 03/16/24 07:34 LRN (Rec: 03/16/24 08:19 LRN [id number]) OP-PT Subjective Patient Comments Patient Comments Having more leaking, pads are full. Having a strange smell from pee that is like an infection, but no other symptoms. PT-OP-I Pelvic Floor Start: 12/31/23 18:50 Freq: Status: Active Protocol: Document 03/05/24 13:54 LRN (Rec: 03/05/24 14:35 LRN [id number]) Pelvic Floor Assessment Comments Pelvic Floor Comments PF Sup - Sit - Stand - PT-OP-J Posture/Palpation/Skin Start: 12/31/23 18:50 Freq: Status: Active Protocol: Document 01/13/24 08:20 LRN (Rec: 01/13/24 09:04 LRN [id number]) Posture Evaluation Position Standing Head/C-Spine Posture Forward Head L-Spine Posture Shifted Left Pelvis Posture Anteriorly Tilted Weight Distribution Weight Shifted Left Hip Posture (R) Externally Rotated,(R) Abducted Comments Posture Comments L ear is low, Dowagers hump, straightened upper thoracic spine. PT-OP-K Range of Motion Start: 12/31/23 18:50 Freq: Status: Active Protocol: Document 01/13/24 08:20 LRN (Rec: 01/13/24 09:04 LRN [id number]) Lumbar Spine Range of Motion Lumbar Spine Active Degrees Testing Position Standing Flexion 70 Extension 10 Rotation Left 30 Rotation Right 35 Lateral Flexion Left 20 Lateral Flexion Right 15 Hip Goniometric Range of Motion Hip Right Passive Testing Position Supine Internal Rotation 35 External Rotation 65 Left Passive Testing Position Supine Internal Rotation 30 External Rotation 60 PT-OP-M Strength Start: 12/31/23 18:50 Freq: Status: Active Protocol: Document 01/13/24 08:20 LRN (Rec: 01/13/24 09:04 LRN [id number]) Hip Strength Hip Manual Muscle Testing Right External Rotation 4+ Good+ Comments Strength is 5/5 except as indicated above. Left Comments Strength is 5/5 except as indicated above. PT-OP-Q Treatments Start: 12/31/23 18:50 Freq: Status: Active Protocol: Document 03/16/24 07:34 LRN (Rec: 03/16/24 08:19 LRN [id number]) Neuro Re-Education Treatment Coordination Activities PF in isolation of ABdom's Details PF Contractions while isolating Abdominals in 3 positions and w/cough,sneze Reps/Duration 34' Comments For: Sup<>Sit, Sit<>stand, Cough, Sneeze. Abdominal ms overpower the PF muscles with trnasfers and in sit & stand. Self-Care/Home Management Treatment Education Other Education Discussed & educated pt in her symptom changes of more leakage as a response to her PF stretching last session, to help to minimize her fear of worsening symptoms. Discussed pt in the change in smell of urine and & re- educated pt in hydration recommendation as her urine smell may have been due to not drinking enough fluids. Activities Self-Care/Home Management Activities I/S pt to practice repetitious learning with each transfer when made without breath/Kegel . PT-OP-T Assessment and Plan Start: 12/31/23 18:50 Freq: Status: Active Protocol: Document 12/23/24 07:34 LRN (Rec: 03/16/24 08:19 LRN [id number]) Physical Therapy Assessment Goals Four Impairment Pain with intercourse on insertion Short Term Goal (STG) Pt will be educated in genital /vulvar care, and will seek medication to improve tissue health of her labia minora. 02/06/24: Pt issued handout for genital/vulvar care. 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 03/12/24: Pain with insertion , a little better since PF stretching last session. 03/16/24: Pt reporting much better with intercourse and choosing not PF stretching today. LTG Duration 04/10/24 progressed 03/16/24 Three Impairment Urge urinary incontinence while heading to bathroom Short Term Goal (STG) Pt will be educated urge deference technique, bowel care, and BM massage to be able to prevent urinary leakage with a strong urge while at home. 01/20/24: Pt educated in urge deference techniqe. Pt reported having daily BMs last week while traveling. 03/12/24: States she is having dialy BMs and is not having any type 1 BMs. 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 02/13/24: Pt started on Kegels 01/13/24, I/S to do Kegels with glut squeeze & R BKFO. LTG Duration 04/10/24 progressed 02/13/24 Two Impairment Increased frequency of urination (10x/day) Short Term Goal (STG) Pt will be educated in norms for voiding (fluid intake, frequency and urination time) and in bladder retraining to reduce times urinating during the day to no more than 6-7x/ day and 1x at night. 01/20/24: Pt educated in norms for fluid intake, norms for urinary frequency and urination times, times between voids and in bladder retraining (urge deference technique). Pt voiding mostly 7x/day, once 9x. Voiding time is 15 secs. STG Duration 02/28/24 progressed 01/20/24 (need voiding time 13 secs or less) [facility] Goal (LTG) Return pt to at least her prior level of function: voiding 10x/day without urinary leakage. 01/20/24: Pt voiding mostly 7x/day, once 9x. Voiding time is 15 secs LTG Duration 04/10/24 progressed 01/20/24 (need voiding time 7-10 secs) One Impairment Pt lacks an independent self care HEP. Short Term Goal (STG) Pt will be educated and able to demonstrate transfers to coordinate breath/PF contraction with transfer to lessen core abdominal pressure . 01/20/24: Pt educated in breathwork with transfers stand<>sit<>supine. 02/06/24: Educated pt in breathwork w/transfers Sup<> sit<>stand and was able to perform with cuing. STG Duration 02/28/24 Progressed: (pt needs to demonsrtate) [facility] Goal (LTG) Pt will be independent in a self care HEP for PF strengthening. Late entry: 01/13/24: Kegels : Quick, Long hold, Aggrevators. 03/16/24: I/S pt to practice repetitious learning with each transfer when made without breath/Kegel. LTG Duration 04/10/24 progressed on Assessment Summary Assessment Pt having less pain with intercourse and feels it not a problem today; therefore no PF stretching. Pt not doing core pressure mgmt with transfers. Pt able to perform 1uick contractions after training, and is unstable in her long hold, but able to better keep abdominals from tightening. She has a had time relaxing her abdominals at rest and often is higher tone than PF at rest. She is able to relax abdoms in ~12 secs. Physical Therapy Plan Frequency and Duration Frequency of Treatment 1x/Week Duration of treatment (weeks) 12 Plan of Care Start Date 01/13/24 Plan of Care End Date 04/10/24 Next Visit Focus/Plan Next Note Type Treatment Note Next Visit Plan Check on urination concerns and if leakage is less. Manual: assess if further strethcing needed for PF - L lateral wall; f/b - PF/wedge strengthening & wedge/neuro- antonieta to reduce abdominal use with PF contractions with strengthening and endurance work. Manual: (check if IUD) Abdominal region for scar mob restrictions - improve abdominal soft tissue (bladder ) mobility, -Assess PF lift with STM of bladder lift. -Assess proper use of urge deference technique & review proper transfers w/Kegel/ breathwork. -Discuss & educate pt in squatting and lifting using coordination of Kegel/ breathwork/abdominal relaxation. General POC: Therapeutic Ex ( PF (on wedge)/hip mobility & strengthening, improve core/ pelvic stability after pt is able to manage her core pressure), Pt education, self care management, manual therapy (abdominal STM and scar mob), biofeedback with vaginal sensor, therapeutic activities, and neuromuscular reeducation.
--- NOTE | 2024-03-23 15:36 | PT.OTN ---
Current Diagnoses Urge incontinence (03/23/24) Mixed incontinence (03/23/24) Superficial (introital) dyspareunia (03/23/24) Physical Therapy Treatment Note PT-OP-A Visit Information Start: 12/31/23 18:50 Freq: Status: Active Protocol: Document 03/23/24 14:34 LRN (Rec: 03/23/24 15:35 LRN [id number]) Out-Patient Physical Therapy Visit Information Visit Information Visit Type Treatment Note Visit Start Time 14:34 Visit Stop Time 15:16 Visit Number 11/21 Evaluation Information Evaluation Date 01/13/24 Precautions Precautions Allergies, Back pain, hyste, breast reduction (1996), PFO, 2 C-sections, bladder and rectal prolapse repair 08/15, Factor 5 Leiden mutation. Records indicate hx of CVA, cardioversion 08/30/19, A. fib 2019, S/P patent foramen ovale closure (~2004), and History of endometrial ablation. NO IUD PT-OP-B Current Condition Start: 12/31/23 18:50 Freq: Status: Active Protocol: Document 01/13/24 08:20 LRN (Rec: 01/13/24 09:04 LRN [id number]) Current Condition History of Current Condition Onset Date 15 yrs ag Current Complaints Worsened urinary incontinence all the time, urinating several times/night. History of Current Condition Pt states she was told she had a prolpase a couple yrs ago. She states in July 2023 she had a hyste and surgical repair of cystocele and rectocele at same time and was given a bladder sling and was given medication for urgency by Dr. Mcnamara. Was told since she has gained a couple of pounds, that she needs to lean backwards to get full emptying of bladder. States she feels her PF strength is more (as her spouse attests) but she complains of not being able to stop urine flow when heading to the bathroom. She has had bladder infections a couple times a yr until she started taking D-manouse. She is currently taking medication for a bladder infection (still on medication ). She c/o pain with intercourse with initial insertion. Pt is G3, P3; she reports 2 c-sections, 3rd child vaginal (note: records indicated 1st was vaginal). Prior Treatments and Tests Physical Therapy in [place] before surgery, and went to bladder doctor and was given medication for it and because of secondary side effects of dementia, she stopped. Records indicate: She had apparently been tried on 1st and second-line spasmolytic therapy by Urology at [facility] with little benefit yet significant side-effects. She is 08/08/23, status post TLH with BSO, laparoscopic vault suspension, laparoscopic enterocele repair, A&P repair, and mid urethral sling placement with cystoscopy. MD f/u visit on 09/24/23, pt showed lack of a normal stream following her mid urethral sling placement. Treatment Goals Patient/Caregiver Goals PT goals: - prior level of function: 10x /day but able to keep from leaking while going to the bathroom. - Strengthen PF to prevent urinary leakage to be able to stop the flow of urine with an urge. - Decrease pain with intial insertion with intercourse. - HEP. Personal Factors Other Personal Factors That May Effect Surgical repair (08/08/23) of Therapy/Recovery cystocele and rectocele at same time and was given a mid urethral bladder sling, 2 C-sections, Factor 5 Leiden mutation. Records indicate hx of CVA, hx of A. fib (2019), S/P patent foramen ovale closure (~2004), and history of endometrial ablation. PT-OP-C Subjective Start: 12/31/23 18:50 Freq: Status: Active Protocol: Document 03/23/24 14:34 LRN (Rec: 03/23/24 15:35 LRN [id number]) OP-PT Subjective Patient Comments Patient Comments No change. Has been sick. Is drinking a little more, so ordor is not as strong. PT-OP-I Pelvic Floor Start: 12/31/23 18:50 Freq: Status: Active Protocol: Document 03/05/24 13:54 LRN (Rec: 03/05/24 14:35 LRN [id number]) Pelvic Floor Assessment Comments Pelvic Floor Comments PF Sup - Sit - Stand - PT-OP-J Posture/Palpation/Skin Start: 12/31/23 18:50 Freq: Status: Active Protocol: Document 01/13/24 08:20 LRN (Rec: 01/13/24 09:04 LRN [id number]) Posture Evaluation Position Standing Head/C-Spine Posture Forward Head L-Spine Posture Shifted Left Pelvis Posture Anteriorly Tilted Weight Distribution Weight Shifted Left Hip Posture (R) Externally Rotated,(R) Abducted Comments Posture Comments L ear is low, Dowagers hump, straightened upper thoracic spine. PT-OP-K Range of Motion Start: 12/31/23 18:50 Freq: Status: Active Protocol: Document 01/13/24 08:20 LRN (Rec: 01/13/24 09:04 LRN [id number]) Lumbar Spine Range of Motion Lumbar Spine Active Degrees Testing Position Standing Flexion 70 Extension 10 Rotation Left 30 Rotation Right 35 Lateral Flexion Left 20 Lateral Flexion Right 15 Hip Goniometric Range of Motion Hip Right Passive Testing Position Supine Internal Rotation 35 External Rotation 65 Left Passive Testing Position Supine Internal Rotation 30 External Rotation 60 PT-OP-M Strength Start: 12/31/23 18:50 Freq: Status: Active Protocol: Document 01/13/24 08:20 LRN (Rec: 01/13/24 09:04 LRN [id number]) Hip Strength Hip Manual Muscle Testing Right External Rotation 4+ Good+ Comments Strength is 5/5 except as indicated above. Left Comments Strength is 5/5 except as indicated above. PT-OP-Q Treatments Start: 12/31/23 18:50 Freq: Status: Active Protocol: Document 03/23/24 14:34 LRN (Rec: 03/23/24 15:35 LRN [id number]) Therapeutic Exercises Supine Exercises Kegel Supine Exercise Name Quick and Long Hold Kegels Reps/Minutes 1 SH/4 SR & 10 SH/20 SR x 12' Manual Therapy Treatment Soft Tissue Mobilization PF Body Location Deep (just past superficial ms ) PF clock 5 & 6 Mobilization Type Sustained Pressure,Trigger Point Release Intensity/Depth Moderate Body Position Hooklying Neuro Re-Education Treatment Coordination Activities PF in isolation of ABdom's Details PF Contractions while isolating Abdominals in supine . Reps/Duration 18' Comments For: Sup<>Sit, Sit<>stand, Cough, Sneeze. Abdominal ms overpower the PF muscles with trnasfers and in sit & stand. PT-OP-T Assessment and Plan Start: 12/31/23 18:50 Freq: Status: Active Protocol: Document 03/23/24 14:34 LRN (Rec: 03/23/24 15:35 LRN [id number]) Physical Therapy Assessment Goals Four Impairment Pain with intercourse on insertion Short Term Goal (STG) Pt will be educated in genital /vulvar care, and will seek medication to improve tissue health of her labia minora. 02/06/24: Pt issued handout for genital/vulvar care. 03/12/24: Been using cream since September (after using x 1 resulting in pop and bleeding) STG Duration 02/28/24 (03/12/24: MET GOAL ) Halfway Goal (LTG) Eliminate pain with intercourse on initial insertion. 03/12/24: Pain with insertion , a little better since PF stretching last session. 03/16/24: Pt reporting much better with intercourse and choosing not PF stretching today. 03/23/24: Better with intercourse, not as much discomfort. LTG Duration 04/10/24 progressed 03/23/24 Three Impairment Urge urinary incontinence while heading to bathroom Short Term Goal (STG) Pt will be educated urge deference technique, bowel care, and BM massage to be able to prevent urinary leakage with a strong urge while at home. 01/20/24: Pt educated in urge deference techniqe. Pt reported having daily BMs last week while traveling. 03/12/24: States she is having dialy BMs and is not having any type 1 BMs. STG Duration 02/28/24 progressed 01/20/24 (having urinary leakage w/ strong urge) Halfway Goal (LTG) Strengthen PF to prevent urinary leakage with a strong urge when in public. 02/13/24: Pt started on Kegels 01/13/24, I/S to do Kegels with glut squeeze & R BKFO. LTG Duration 04/10/24 progressed 02/13/24 Two Impairment Increased frequency of urination (10x/day) Short Term Goal (STG) Pt will be educated in norms for voiding (fluid intake, frequency and urination time) and in bladder retraining to reduce times urinating during the day to no more than 6-7x/ day and 1x at night. 01/20/24: Pt educated in norms for fluid intake, norms for urinary frequency and urination times, times between voids and in bladder retraining (urge deference technique). Pt voiding mostly 7x/day, once 9x. Voiding time is 15 secs. STG Duration 02/28/24 progressed 01/20/24 (need voiding time 13 secs or less) Furniture Duster Goal (LTG) Return pt to at least her prior level of function: voiding 10x/day without urinary leakage. 01/20/24: Pt voiding mostly 7x/day, once 9x. Voiding time is 15 secs LTG Duration 04/10/24 progressed 01/20/24 (need voiding time 7-10 secs) One Impairment Pt lacks an independent self care HEP. Short Term Goal (STG) Pt will be educated and able to demonstrate transfers to coordinate breath/PF contraction with transfer to lessen core abdominal pressure . 01/20/24: Pt educated in breathwork with transfers stand<>sit<>supine. 02/06/24: Educated pt in breathwork w/transfers Sup<> sit<>stand and was able to perform with cuing. STG Duration 02/28/24 Progressed: (pt needs to demonsrtate) Furniture Duster Goal (LTG) Pt will be independent in a self care HEP for PF strengthening. Late entry: 01/13/24: Kegels : Quick, Long hold, Aggrevators. 03/16/24: I/S pt to practice repetitious learning with each transfer when made without breath/Kegel. LTG Duration 04/10/24 progressed on Assessment Summary Assessment 58 yo female w/mixed urinary incontinence, grade 3 cystocele in supine; tight L lateral wall, sluggish quick and weak Kegels. Today, pt reports no further concerns with urination and smell, and leakage is a little less with more hydration, but leakage is not as good as it has been. PF tenderness at 5 & 6 of PF clock, relieved with TrP release. Pt was able to identify & understand TA tightening with PF contraction should be isolated from PF, and demonstrated Abdominals not overpowering PF with a kegel. Physical Therapy Plan Frequency and Duration Frequency of Treatment 1x/Week Duration of treatment (weeks) 12 Plan of Care Start Date 01/13/24 Plan of Care End Date 04/10/24 Next Visit Focus/Plan Next Note Type Treatment Note Next Visit Plan Assess if using core pressure mgmt with transfers. Manual: TrP for 5,6 of PF clock & recheck if stretching for L lateral wall is needed; f/b - PF/wedge strengthening (L lat wall) & wedge/neuro-antonieta to reduce abdominal use with PF contractions with strengthening and endurance work, progress when PF stronger in supine. Manual: Abdominal region for scar mob restrictions - improve abdominal soft tissue (bladder) mobility, -Assess PF lift with STM of bladder lift. -Assess proper use of urge deference technique & review proper transfers w/Kegel/ breathwork. -Discuss & educate pt in squatting and lifting using coordination of Kegel/ breathwork/abdominal relaxation. General POC: Therapeutic Ex ( PF (on wedge)/hip mobility & strengthening, improve core/ pelvic stability after pt is able to manage her core pressure), Pt education, self care management, manual therapy (abdominal STM and scar mob), biofeedback with vaginal sensor, therapeutic activities, and neuromuscular reeducation.
--- NOTE | 2024-04-07 08:59 | PT.OTN ---
Current Diagnoses Urge incontinence (04/07/24) Mixed incontinence (04/07/24) Superficial (introital) dyspareunia (04/07/24) Physical Therapy Treatment Note PT-OP-A Visit Information Start: 12/31/23 18:50 Freq: Status: Active Protocol: Document 04/07/24 07:33 LRN (Rec: 04/07/24 08:58 LRN [id number]) Out-Patient Physical Therapy Visit Information Visit Information Visit Type Progress Note Visit Start Time 07:33 Visit Stop Time 08:14 Visit Number 01/21 Evaluation Information Evaluation Date 01/13/24 Precautions Precautions Allergies, Back pain, hyste, breast reduction (1996), PFO, 2 C-sections, bladder and rectal prolapse repair 08/15, Factor 5 Leiden mutation. Records indicate hx of CVA, cardioversion 08/30/19, A. fib 2019, S/P patent foramen ovale closure (~2004), and History of endometrial ablation. NO IUD PT-OP-B Current Condition Start: 12/31/23 18:50 Freq: Status: Active Protocol: Document 01/13/24 08:20 LRN (Rec: 01/13/24 09:04 LRN [id number]) Current Condition History of Current Condition Onset Date 15 yrs ag Current Complaints Worsened urinary incontinence all the time, urinating several times/night. History of Current Condition Pt states she was told she had a prolpase a couple yrs ago. She states in July 2023 she had a hyste and surgical repair of cystocele and rectocele at same time and was given a bladder sling and was given medication for urgency by Dr. Mcnamara. Was told since she has gained a couple of pounds, that she needs to lean backwards to get full emptying of bladder. States she feels her PF strength is more (as her spouse attests) but she complains of not being able to stop urine flow when heading to the bathroom. She has had bladder infections a couple times a yr until she started taking D-manouse. She is currently taking medication for a bladder infection (still on medication ). She c/o pain with intercourse with initial insertion. Pt is G3, P3; she reports 2 c-sections, 3rd child vaginal (note: records indicated 1st was vaginal). Prior Treatments and Tests Physical Therapy in [place] before surgery, and went to bladder doctor and was given medication for it and because of secondary side effects of dementia, she stopped. Records indicate: She had apparently been tried on 1st and second-line spasmolytic therapy by Urology at [facility] with little benefit yet significant side-effects. She is 08/08/23, status post TLH with BSO, laparoscopic vault suspension, laparoscopic enterocele repair, A&P repair, and mid urethral sling placement with cystoscopy. MD f/u visit on 09/24/23, pt showed lack of a normal stream following her mid urethral sling placement. Treatment Goals Patient/Caregiver Goals PT goals: - prior level of function: 10x /day but able to keep from leaking while going to the bathroom. - Strengthen PF to prevent urinary leakage to be able to stop the flow of urine with an urge. - Decrease pain with intial insertion with intercourse. - HEP. Personal Factors Other Personal Factors That May Effect Surgical repair (08/08/23) of Therapy/Recovery cystocele and rectocele at same time and was given a mid urethral bladder sling, 2 C-sections, Factor 5 Leiden mutation. Records indicate hx of CVA, hx of A. fib (2019), S/P patent foramen ovale closure (~2004), and history of endometrial ablation. PT-OP-C Subjective Start: 12/31/23 18:50 Freq: Status: Active Protocol: Document 04/07/24 07:33 LRN (Rec: 04/07/24 08:58 LRN [id number]) OP-PT Subjective Patient Comments Patient Comments Does Kegels during times of sitting and at bed at night when wakes at night. PT-OP-I Pelvic Floor Start: 12/31/23 18:50 Freq: Status: Active Protocol: Document 04/07/24 07:33 LRN (Rec: 04/07/24 08:58 LRN [id number]) Pelvic Floor Assessment Prolapse Cystocele Grade 3 Prolapse Comments Extends 1/2 way into vaginal canal. Not into vaginal opening. SEMG (uV) Baseline 0.6 Quick Contraction 8.6 10 Second Contraction 11.8 Recruitment Pattern Good Relaxation Fair Holding Good Stability of Hold Good SEMG Stability of Rest Good Contraction Ability Voluntary Contraction Moderate Voluntary Relaxation Moderate Manual Muscle Testing Left 3 Manual Muscle Testing Right 3 Manual Muscle Testing Anterior 0 Manual Muscle Testing Posterior 3 Muscle Endurance (Seconds) 10 Number of Quick Contractions In 10 6 Seconds Comments Pelvic Floor Comments Quick Flicks: 10 reps strength: avg work 8. 6, avg rest 4.5. (on 04/02/24: 10 reps strength: avg work 7.4, avg rest 5.0). Long Holds: 10 reps strength: avg work 11 .8, avg rest 2.4. (on 04/02/24: 10 reps strength: avg work 10/2, avg rest 2.8) . PT-OP-J Posture/Palpation/Skin Start: 12/31/23 18:50 Freq: Status: Active Protocol: Document 01/13/24 08:20 LRN (Rec: 01/13/24 09:04 LRN [id number]) Posture Evaluation Position Standing Head/C-Spine Posture Forward Head L-Spine Posture Shifted Left Pelvis Posture Anteriorly Tilted Weight Distribution Weight Shifted Left Hip Posture (R) Externally Rotated,(R) Abducted Comments Posture Comments L ear is low, Dowagers hump, straightened upper thoracic spine. PT-OP-K Range of Motion Start: 12/31/23 18:50 Freq: Status: Active Protocol: Document 01/13/24 08:20 LRN (Rec: 01/13/24 09:04 LRN [id number]) Lumbar Spine Range of Motion Lumbar Spine Active Degrees Testing Position Standing Flexion 70 Extension 10 Rotation Left 30 Rotation Right 35 Lateral Flexion Left 20 Lateral Flexion Right 15 Hip Goniometric Range of Motion Hip Right Passive Testing Position Supine Internal Rotation 35 External Rotation 65 Left Passive Testing Position Supine Internal Rotation 30 External Rotation 60 PT-OP-M Strength Start: 12/31/23 18:50 Freq: Status: Active Protocol: Document 01/13/24 08:20 LRN (Rec: 01/13/24 09:04 LRN [id number]) Hip Strength Hip Manual Muscle Testing Right External Rotation 4+ Good+ Comments Strength is 5/5 except as indicated above. Left Comments Strength is 5/5 except as indicated above. PT-OP-Q Treatments Start: 12/31/23 18:50 Freq: Status: Active Protocol: Document 04/07/24 07:33 LRN (Rec: 04/07/24 08:58 LRN [id number]) Therapeutic Exercises Supine Exercises Kegel Supine Exercise Name Quick and Long hold Kegels Reps/Minutes 2 SH/4 SR & 10 SH/10 SR; 10x 3 sets with long rest after first set Comments See PF assessment taken Self-Care/Home Management Treatment Education Other Education Discussed results of rehab program, goals, treatment, and plan of care (POC); pt agreeable to goals, treatment and POC. PT-OP-T Assessment and Plan Start: 12/31/23 18:50 Freq: Status: Active Protocol: Document 04/07/24 07:33 LRN (Rec: 04/07/24 08:58 LRN [id number]) Physical Therapy Assessment Rehab Potential Rehabilitation Potential Fair Evaluation Complexity Number of Personal Factors/Comorbidities 3 or More Number of Body Systems Impaired 4 or More Clinical Presentation at Evaluation Evolving Impairments Impairments Activity Tolerance,Posture,ROM ,Soft Tissue Mobility,Strength Other Impairments Poor core pressure management. Goals Three Impairment Urge urinary incontinence while heading to bathroom Short Term Goal (STG) Pt will be educated urge deference technique, bowel care, and BM massage to be able to prevent urinary leakage with a strong urge while at home. 01/20/24: Pt educated in urge deference techniqe. Pt reported having daily BMs last week while traveling. 03/12/24: States she is having dialy BMs and is not having any type 1 BMs. 04/07/24: No significant change. Having small leakage with strong urge while walking to bathroom and loose of urine as removing clothing. STG Duration 04/17/24 progressed 03/12/24 (having urinary leakage w/ strong urge) Fci Goal (LTG) Strengthen PF to prevent urinary leakage with a strong urge when in public. 02/13/24: Pt started on Kegels 01/13/24, I/S to do Kegels with glut squeeze & R BKFO. 04/07/24: Urinary incontinence with urges in public. Doing pre-emptive peeing. LTG Duration 05/05/24 progressed 02/13/24 Two Impairment Increased frequency of urination (10x/day) Short Term Goal (STG) Pt will be educated in norms for voiding (fluid intake, frequency and urination time) and in bladder retraining to reduce times urinating during the day to no more than 6-7x/ day and 1x at night. 01/20/24: Pt educated in norms for fluid intake, norms for urinary frequency and urination times, times between voids and in bladder retraining (urge deference technique). Pt voiding mostly 7x/day, once 9x. Voiding time is 15 secs. 04/07/24: Thinks she is urinating every 5-10 minutes, but thinks it is at least 2x/ hr, having to rock to empty, and urinary stream is slow and urination times is still long . STG Duration 04/17/24 progressed 01/20/24 (need voiding time 13 secs or less) Ham Pumper Goal (LTG) Return pt to at least her prior level of function: voiding 10x/day without urinary leakage. 01/20/24: Pt voiding mostly 7x/day, once 9x. Voiding time is 15 secs LTG Duration 05/05/24 progressed 01/20/24 (need voiding time 7-10 secs) One Impairment Pt lacks an independent self care HEP. Short Term Goal (STG) Pt will be educated and able to demonstrate transfers to coordinate breath/PF contraction with transfer to lessen core abdominal pressure . 01/20/24: Pt educated in breathwork with transfers stand<>sit<>supine. 02/06/24: Educated pt in breathwork w/transfers Sup<> sit<>stand and was able to perform with cuing. 04/07/24: Doesn't remember to manage core pressure except when getting in/out of bed. STG Duration 04/17/24 Progressed: (need to do with sit<stand ) [facility]ci Goal (LTG) Pt will be independent in a self care HEP for PF strengthening. Late entry: 01/13/24: Kegels : Quick, Long hold, Aggrevators. 03/16/24: I/S pt to practice repetitious learning with each transfer when made without breath/Kegel. LTG Duration 05/05/24 progressed on Assessment Summary Assessment Pt is a 59 yo female w/mixed urinary incontinence, ( initially with dyspareunia that has resolved) and what appears to be a grade 3 cystocele in supine (bladder drops into 1/2 of vaginal canal, but not into the vaginal opening). She is weak and possibly tight in L anterior PF (PF clock 10-11), sluggish quick PF contractions (6 reps in 10 secs), but good strength with long hold (11.8 uV). In supine, her PF resting tone is weaker than her abdominal tone, but with a PF contraction her PF strength is greater than abdominal tone (until she relaxes her PF). Assessment of PF strength in sitting and standing was not able to be performed today due to time constraints, but will be assessed in subsequent treatment(s). Overall, she has mildly improved in her PF strength, but reportedly is leaking less (small vs medium) in volume of urine. She has not tracked her leakage or urination times/frequency but she feels it is not much different than before. She would like to continue therapy this month and commits to do the ex's as instructed, increasing frequency of exercises, and being more conscious of manageing her core pressure, to get improvement with her voiding ability and decrease her urinary leakage with a strong urge. I recommended that the pt return to referring physician for follow up care at end of month, and if she can show improvement this month, I will discuss possible further physical therapy. Physical Therapy Plan Frequency and Duration Frequency of Treatment 1x/Week Duration of treatment (weeks) 4 Plan of Care Start Date 04/07/24 Plan of Care End Date 05/05/24 Therapeutic Interventions Therapeutic Interventions Home Exercise Program,Manual Therapy,Neuromuscular Re- education,Self-Care/Home Management,Soft Tissue Mobilization,Therapeutic Activities,Therapeutic Exercises Modalities Biofeedback Next Visit Focus/Plan Next Note Type Treatment Note Next Visit Plan UI>KIM rehab (dyspareunia resolved). Manual: Stretch to 10-11 of PF clock, f/b PF/ wedge strengthening (anterior L lat wall) & sitting/standing neuro-antonieta to reduce gluteal & abdominal use with PF contraction strengthening and endurance work. Manual: Abdomen for scar mob restrictions - improve abdominal soft tissue (bladder ) mobility. -Assess PF lift with STM of bladder lift. -Review proper use of urge deference technique. -Discuss & educate pt in squatting and lifting using coordination of Kegel/ breathwork/abdominal relaxation. General POC: Therapeutic Ex ( PF (on wedge)/hip mobility & strengthening, improve core/ pelvic stability after pt is able to manage her core pressure), Pt education, self care management, manual therapy (abdominal STM and scar mob), biofeedback with vaginal sensor, therapeutic activities, and neuromuscular reeducation.
--- NOTE | 2024-04-16 16:13 | PT.OTN ---
Current Diagnoses Urge incontinence (04/16/24) Mixed incontinence (04/16/24) Superficial (introital) dyspareunia (04/16/24) Physical Therapy Treatment Note PT-OP-A Visit Information Start: 12/31/23 18:50 Freq: Status: Active Protocol: Document 04/16/24 14:37 LRN (Rec: 04/16/24 16:05 LRN [id number]) Out-Patient Physical Therapy Visit Information Visit Information Visit Type Discharge Summary Visit Start Time 14:37 Visit Stop Time 15:16 Visit Number 02/21 Evaluation Information Evaluation Date 01/13/24 Precautions Precautions Allergies, Back pain, hyste, breast reduction (1996), PFO, 2 C-sections, bladder and rectal prolapse repair 08/15, Factor 5 Leiden mutation. Records indicate hx of CVA, cardioversion 08/30/19, A. fib 2019, S/P patent foramen ovale closure (~2004), and History of endometrial ablation. NO IUD PT-OP-B Current Condition Start: 12/31/23 18:50 Freq: Status: Active Protocol: Document 01/13/24 08:20 LRN (Rec: 01/13/24 09:04 LRN [id number]) Current Condition History of Current Condition Onset Date 15 yrs ag Current Complaints Worsened urinary incontinence all the time, urinating several times/night. History of Current Condition Pt states she was told she had a prolpase a couple yrs ago. She states in July 2023 she had a hyste and surgical repair of cystocele and rectocele at same time and was given a bladder sling and was given medication for urgency by Dr. Mcnamara. Was told since she has gained a couple of pounds, that she needs to lean backwards to get full emptying of bladder. States she feels her PF strength is more (as her spouse attests) but she complains of not being able to stop urine flow when heading to the bathroom. She has had bladder infections a couple times a yr until she started taking D-manouse. She is currently taking medication for a bladder infection (still on medication ). She c/o pain with intercourse with initial insertion. Pt is G3, P3; she reports 2 c-sections, 3rd child vaginal (note: records indicated 1st was vaginal). Prior Treatments and Tests Physical Therapy in [place] before surgery, and went to bladder doctor and was given medication for it and because of secondary side effects of dementia, she stopped. Records indicate: She had apparently been tried on 1st and second-line spasmolytic therapy by Urology at [facility] with little benefit yet significant side-effects. She is 08/08/23, status post TLH with BSO, laparoscopic vault suspension, laparoscopic enterocele repair, A&P repair, and mid urethral sling placement with cystoscopy. MD f/u visit on 09/24/23, pt showed lack of a normal stream following her mid urethral sling placement. Treatment Goals Patient/Caregiver Goals PT goals: - prior level of function: 10x /day but able to keep from leaking while going to the bathroom. - Strengthen PF to prevent urinary leakage to be able to stop the flow of urine with an urge. - Decrease pain with intial insertion with intercourse. - HEP. Personal Factors Other Personal Factors That May Effect Surgical repair (08/08/23) of Therapy/Recovery cystocele and rectocele at same time and was given a mid urethral bladder sling, 2 C-sections, Factor 5 Leiden mutation. Records indicate hx of CVA, hx of A. fib (2019), S/P patent foramen ovale closure (~2004), and history of endometrial ablation. PT-OP-C Subjective Start: 12/31/23 18:50 Freq: Status: Active Protocol: Document 04/16/24 14:37 LRN (Rec: 04/16/24 16:05 LRN [id number]) OP-PT Subjective Patient Comments Patient Comments Filled a pad today with urine walking to the bathroom. Can' t hold her urine. Patient Questionnaires Pelvic Floor Distress Inventory Questionnaire (PFDI- SF20) Pelvic Floor Score 17 PT-OP-I Pelvic Floor Start: 12/31/23 18:50 Freq: Status: Active Protocol: Document 04/16/24 14:37 LRN (Rec: 04/16/24 16:05 LRN [id number]) Pelvic Floor Assessment SEMG (uV) Baseline 1.8 Quick Contraction 6.5 10 Second Contraction 8.2 Recruitment Pattern Good Relaxation Fair Holding Fair Stability of Hold Fair SEMG Stability of Rest Poor/Slow Comments Pelvic Floor Comments Quick Flicks: 10 reps strength: avg work 6. 5, avg rest 4.6. (on 04/02/24: 10 reps strength: avg work 7.4, avg rest 5.0; on 04/07/24: avg work 8.6, avg rest 4.5). Long Holds: 10 reps strength: avg work 11 .8, avg rest 2.4. (on 04/02/24: 10 reps strength: avg work 10/2, avg rest 2.8; on 04/07/24: avg work 11.8, avg rest 2.4). PT-OP-J Posture/Palpation/Skin Start: 12/31/23 18:50 Freq: Status: Active Protocol: Document 01/13/24 08:20 LRN (Rec: 01/13/24 09:04 LRN [id number]) Posture Evaluation Position Standing Head/C-Spine Posture Forward Head L-Spine Posture Shifted Left Pelvis Posture Anteriorly Tilted Weight Distribution Weight Shifted Left Hip Posture (R) Externally Rotated,(R) Abducted Comments Posture Comments L ear is low, Dowagers hump, straightened upper thoracic spine. PT-OP-K Range of Motion Start: 12/31/23 18:50 Freq: Status: Active Protocol: Document 01/13/24 08:20 LRN (Rec: 01/13/24 09:04 LRN [id number]) Lumbar Spine Range of Motion Lumbar Spine Active Degrees Testing Position Standing Flexion 70 Extension 10 Rotation Left 30 Rotation Right 35 Lateral Flexion Left 20 Lateral Flexion Right 15 Hip Goniometric Range of Motion Hip Right Passive Testing Position Supine Internal Rotation 35 External Rotation 65 Left Passive Testing Position Supine Internal Rotation 30 External Rotation 60 PT-OP-M Strength Start: 12/31/23 18:50 Freq: Status: Active Protocol: Document 01/13/24 08:20 LRN (Rec: 01/13/24 09:04 LRN [id number]) Hip Strength Hip Manual Muscle Testing Right External Rotation 4+ Good+ Comments Strength is 5/5 except as indicated above. Left Comments Strength is 5/5 except as indicated above. PT-OP-Q Treatments Start: 12/31/23 18:50 Freq: Status: Active Protocol: Document 04/16/24 14:37 LRN (Rec: 04/16/24 16:05 LRN [id number]) Neuro Re-Education Treatment Coordination Activities PF in isolation of ABdom's Details PF Contractions while isolating Abdominals in supine (quick & long hold) Reps/Duration 19' Comments For: Supine & stand. Abdominal ms overpower the PF muscles stand. Other Activities PF contraction trng Details REMG stim for PF contraction Reps/Duration 8' Comments 50 pps, 22 intensity, 10:10 ( on/off). High intensity did not lead to a PF contraction. Stim felt primarily at opening of vagina . Self-Care/Home Management Treatment Education Other Education Discussed and reviewed patient plan of care and goals and options to care. The pt is wanting to have further assessment by urologist as she voices concerns over her frequency of voiding, voiding times and continued urinary leakage with a strong urge or cough. PT-OP-T Assessment and Plan Start: 12/31/23 18:50 Freq: Status: Active Protocol: Document 04/16/24 14:37 LRN (Rec: 04/16/24 16:05 LRN [id number]) Physical Therapy Assessment Goals Four Impairment Pain with intercourse on insertion Short Term Goal (STG) Pt will be educated in genital /vulvar care, and will seek medication to improve tissue health of her labia minora. 02/06/24: Pt issued handout for genital/vulvar care. 03/12/24: Been using cream since September (after using x 1 resulting in pop and bleeding) STG Duration 02/28/24 (03/12/24: MET GOAL ) Home Decorator Goal (LTG) Eliminate pain with intercourse on initial insertion. 03/12/24: Pain with insertion , a little better since PF stretching last session. 03/16/24: Pt reporting much better with intercourse and choosing not PF stretching today. 03/23/24: Better with intercourse, not as much discomfort. 04/02/24: No pain with intercourse. LTG Duration 04/10/24 (04/02/24: MET GOAL) Three Impairment Urge urinary incontinence while heading to bathroom Short Term Goal (STG) Pt will be educated urge deference technique, bowel care, and BM massage to be able to prevent urinary leakage with a strong urge while at home. 01/20/24: Pt educated in urge deference techniqe. Pt reported having daily BMs last week while traveling. 03/12/24: States she is having dialy BMs and is not having any type 1 BMs. 04/07/24: No significant change. Having small leakage with strong urge while walking to bathroom and loose of urine as removing clothing. 04/16/24: No change. STG Duration 04/17/24 progressed 03/12/24 (04/16/24: NOT MET GOAL) Mcc Goal (LTG) Strengthen PF to prevent urinary leakage with a strong urge when in public. 02/13/24: Pt started on Kegels 01/13/24, I/S to do Kegels with glut squeeze & R BKFO. 04/07/24: Urinary incontinence with urges in public. Doing pre-emptive peeing. LTG Duration 05/05/24 progressed 02/13/24 (05/17/24: NOT MET GOAL) Two Impairment Increased frequency of urination (10x/day) Short Term Goal (STG) Pt will be educated in norms for voiding (fluid intake, frequency and urination time) and in bladder retraining to reduce times urinating during the day to no more than 6-7x/ day and 1x at night. 01/20/24: Pt educated in norms for fluid intake, norms for urinary frequency and urination times, times between voids and in bladder retraining (urge deference technique). Pt voiding mostly 7x/day, once 9x. Voiding time is 15 secs. 04/07/24: Thinks she is urinating every 5-10 minutes, but thinks it is at least 2x/ hr, having to rock to empty, and urinary stream is slow and urination times is still long . 04/16/24: No change. STG Duration 04/17/24 progressed 01/20/24 (04/16/24: NOT MET GOAL) Home Decorator Goal (LTG) Return pt to at least her prior level of function: voiding 10x/day without urinary leakage. 01/20/24: Pt voiding mostly 7x/day, once 9x. Voiding time is 15 secs. 04/16/24: Voiding 15' after a void. No change with leakage , still leaking trying to get to bathroom. LTG Duration 05/05/24 progressed 01/20/24 (04/16/24: NOT MET GOAL) One Impairment Pt lacks an independent self care HEP. Short Term Goal (STG) Pt will be educated and able to demonstrate transfers to coordinate breath/PF contraction with transfer to lessen core abdominal pressure . 01/20/24: Pt educated in breathwork with transfers stand<>sit<>supine. 02/06/24: Educated pt in breathwork w/transfers Sup<> sit<>stand and was able to perform with cuing. 04/07/24: Doesn't remember to manage core pressure except when getting in/out of bed. STG Duration 04/17/24 progressed 04/07/23 (04/16/24: Pt not managing core pressure) Mcc Goal (LTG) Pt will be independent in a self care HEP for PF strengthening. Late entry: 01/13/24: Kegels : Quick, Long hold, Aggrevators. 03/16/24: I/S pt to practice repetitious learning with each transfer when made without breath/Kegel. LTG Duration 05/05/24 (04/16/24: MET GOAL for current status) Assessment Summary Assessment Pt is a 59 yo female w/mixed urinary incontinence, ( initially with dyspareunia that has been resolved) and what appears to be a grade 3 cystocele in supine (bladder drops into 1/2 of vaginal canal, but not into the vaginal opening). Her PF is weak and possibly tight in L anterior PF (PF clock 10-11), quick PF contractions are sluggish (6 reps in 10 secs, and fair in strength (6.5 uV's ), long hold contractions show fairly good strength (avg is 8.2uV) and fairly good in consistancy of hold & stability of hold. In supine, resting PF resting tone is weaker than abdominal tone, but with a kegel her PF strength is greater than abdominal tone. Standing her abdominal tone is greater than her resting PF and david PF strength; therefore a reason for her urinary incontinence in standing and walking. She appears to have increased frequency of urination per report of urination needed 15' after prior urination. She thinks she is voiding at least 15-30+ times a day. Pelvic Pain and Urgency/Frequency Patient Symptom Scale (PUF) is today worse than initial score (today 17, initial 12). Further strengthening would be appropriate, but further assessment of her bladder positioning and other possibilities for her increased urination would be appropriate. The pt is being discharged today to her HEP and the pt understands she will need a new referral if further PF strengthening is needed. Physical Therapy Plan Discharge Physical Therapy Discharge Reasons Patient Request Discharge Comments Resolution of dyspareunia, no change with frequency of urination and urge/stress urinary leakage. Pt wanting to see a urologist for assessment. Thank you for your referral.
== END 2024-04-22 14:28 | disposition home or self-care (01) ==
LOC: PHYS 14:30
PROVIDERS: Family Provider Family Medicine; PCP Family Medicine; Referring Provider Obstetrics & Gynecology; Visit Provider Obstetrics & Gynecology
DX: N39.46 Mixed incontinence (principal); N94.11 Superficial (introital) dyspareunia
CPT/HCPCS: 97110; 97112; 97140; 97162; 97530; 97535